=== PATIENT | male | born 1945 | race American Indian/Alaskan Native ===

== ENCOUNTER 2019-04-13 17:00 | Inpatient (IN) | payer MEDICARE ==
[2019-04-13] MEDS ORDERED: ZEMURON IV ONE (17:05)
[2019-04-13] MEDS ORDERED: AMIDATE IV ONE (17:05)
[2019-04-13] MEDS ORDERED: VERSED IV PRN (17:15)
[2019-04-13] MEDS ORDERED: SUBLIMAZE IV PRN (17:15)
[2019-04-13] MEDS ORDERED: ARTIFICIAL TEARS OPHTH OINT OU PRN (17:15)
[2019-04-13] MEDS ORDERED: VASELINE LIP THERAPY TP PRN (17:15)
[2019-04-13 17:16] LABS: Basophils # (Auto) 0.1 K/mm3 (0.0-0.1); Basophils % (Auto) 1.1 % (0.0-1.8); Eosinophils # (Auto) 0.3 K/mm3 (0.0-0.4); Eosinophils % (Auto) 2.8 % (0.0-4.3); Hematocrit 30.8 % (35.5-45.6); Hemoglobin 9.7 gm/dl (11.8-15.2); Lymphocytes # (Auto) 3.6 K/mm3 (1.2-5.4); Mean Corpuscular HGB Conc 31 % (32-34); Mean Corpuscular Volume 94 fl (84-94); Monocytes # (Auto) 0.6 K/mm3 (0.0-0.8); Monocytes % (Auto) 6.4 % (0.0-7.3); Platelet Count 227 K/mm3 (140-440); Red Blood Count 3.27 M/mm3 (3.65-5.03)
[2019-04-13 17:18] LABS: Red Cell Distribution Width 20.9 % (13.2-15.2)
[2019-04-13 17:28] LABS: INR 0.98 (0.87-1.13)
[2019-04-13 17:29] LABS: Partial Thromboplastin Time 27.9 Sec. (24.2-36.6); Thrombin Time 14.7 Sec. (15.1-19.6)
--- NOTE | 2019-04-13 17:34 | Emergency Department Report ---
ED General Adult HPI - General Chief complaint: Cardiac Arrest/CPR Stated complaint: POST ARREST/STEMI Time Seen by Provider: 04/13/19 17:08 Source: EMS (verbal report received from EMS.ems notes not available at time of chart dictation), RN notes reviewed Mode of arrival: Stretcher Limitations: Altered Mental Status, Physical Limitation - History of Present Illness Initial comments: This is an -[place] gentleman, appears to be in his early 60s, unknown past medical history, who was brought to the hospital by emergency medical services as an out of hospital cardiac arrest. As per verbal report from emergency medical services, the patient was reportedly in transport, unknown from where, unknown to what destination, when he reportedly slumped over and became unresponsive. EMS indicates the patient was pulseless upon arrival. The indicated he may have had some right-sided finger twitching. The patient was given epinephrine, calcium, chest compressions, and had a Piyush airway device placed. EMS indicates the patient was reportedly pulseless for 4-5 minutes. The patient arrives to the emergency room, with pulses, and hypertensive, with a blood pressure 200s. He has a fingerstick of 98. He is still in a coma. The patient induced with 20 mg of etomidate, aggressively suctioned, direct laryngoscopy is performed, and a 7.5 endotracheal tube was inserted by myself, with one attempt, with no difficulty. Tube placement is confirmed by auscultating breath sounds, postintubation capnography, and post intubation x- ray of the chest. The patient's prehospital EKG was reviewed, and demonstrated ST elevations V1, V2, V3, with simultaneous depressions V4, V5 and V6. ST elevations also noted in aVR. Patient's post intubation x-ray suggested abnormally widened mediastinum. Given EKG findings, chest x-ray findings, hypertension, we are concerned about the possibility of ascending thoracic aortic dissection. Intracranial hemorrhage is also a possibility. The STEMI team was activated overhead, however, the patient required an emergent CT scan of the brain to exclude hemorrhage, an emergent CT angiogram of the chest to exclude aortic dissection, large pulmonary embolus. The patient is currently in his room, status post CAT scan, intubated, sedated, and we are awaiting CT scan of the brain, and CT scan of the chest interpretation. The patient is not able to describe exacerbating or relieving factors, qualitative nature of his symptoms, or radiation. Given the emergent nature of his presentation and symptoms, I have emergently, and administratively consented this patient for intravenous contrast, to exclude potentially life-threatening in time sensitive diagnosis. If he requires additional inpatient consultation, such as nephrology and/or critical care, we will arrange. -: Sudden Radiation: other Quality: other Consistency: other Improves with: other Worsens with: other Associated Symptoms: other - Related Data Allergies Allergy/AdvReac Type Severity Reaction Status Date / Time No Known Allergies Allergy Unverified 04/13/19 17:02 ED Review of Systems ROS: Stated complaint: POST ARREST/STEMI Other details as noted in HPI Comment: Unobtainable due to pts medical conditions ED Past Medical Hx - Past Medical History Previous Medical History?: No - Surgical History Past Surgical History?: No ED Physical Exam - General Limitations: No Limitations, Altered Mental Status General appearance: obtunded - Head Head exam: Present: atraumatic, normocephalic - Eye Eye exam: Present: other (pupils are 2 mm, do not react to light) - ENT ENT exam: Present: normal external ear exam, other (copious secretions noted in the oropharynx. Patient noted to be moving jaw and tongue prior to intubation, induction) - Neck Neck exam: Present: normal inspection - Respiratory Respiratory exam: Present: rhonchi - Cardiovascular Cardiovascular Exam: Present: normal rhythm, tachycardia, normal heart sounds. Absent: bradycardia, irregular rhythm, systolic murmur, diastolic murmur - GI/Abdominal GI/Abdominal exam: Present: soft, distended. Absent: tenderness, guarding, rebound, rigid, pulsatile mass - exam: Present: normal inspection - Extremities Exam Extremities exam: Present: normal inspection, other (there appears to be a nonfunctioning left upper extremity graft) - Back Exam Back exam: Absent: tenderness, paraspinal tenderness - Neurological Exam Neurological exam: Present: altered, other (presents with an initial Kellen Coma Scale of 3) - Skin Skin exam: Present: dry ED Course Vital Signs 04/13/19 04/13/19 17:00 18:25 Pulse Rate 80 86 Respiratory 16 17 Rate Blood Pressure 186/100 167/91 [Left] O2 Sat by Pulse 100 100 Oximetry - Reevaluation(s) Reevaluation #1: 04/13/19 18:07 As per verbal report from our interpreting radiologist, Dr. Vogt, there is no dissection noted on CT scan. Incidental findings noted. Please note that because of the undifferentiated nature of the patient's initial presentation, a broad differential diagnosis required entertaining, including intracranial hemorrhage, and aortic dissection. Therefore, there may be a delay in the door to balloon time for cardiac catheterization, given the number of emergent diagnoses that required emergent exclusion. Therefore, heparin and aspirin and Plavix were also not administered in the emergency room. The patient is currently in the cardiac sawyer cork slabs, with contact acid plant operator plans to evaluate his coronary anatomy. A page is placed out to nephrology international sourcing manager, and critical care international sourcing manager. Reevaluation #2: 04/13/19 18:26 Discussed with critical care physician, Dr. Michael, who agrees with placement into the intensive care unit. He does not recommend postarrest hypothermia protocol, as this hospital does not have a postarrest hypothermia protocol. The case is presented to the Hospital physician, Dr. Mendez, who has accepted the patient quite graciously to the intensive care unit. We do not know who the patient's primary facilities management executive is, therefore, we have placed a page to the outpatient facilities management executive on-call, and we are waiting for them to call back. Reevaluation #3: 04/13/19 18:32 Discussed with nephrology international sourcing manager, Dr. Yaya Stoddard, who agrees to follow on the inpa tient side of things and arrange for inpatient dialysis. - Consultations Consultation #1: 04/13/19 18:02 \l - EJ/Peripheral Line Neck L Time Out Performed: Yes Indications: nurses unable to establis Skin Cleansed in Sterile Fashion: Yes Size: 18 Dressing Placed: Tegaderm Patient Tolerated Procedure: well - Intubation Time Out Performed: No (emergency procedure) Sedative: Etomidate Mg Given: 20 Paralytic: Rocuronium Mg Given: 100 Laryngoscope: Chen Size: 3 ET Tube Size: 7.5 Tube Secured Depth (cm): 23 Tube Secured Location: teeth Tube Placement Confirmation: visualized tube passing t, equal breath sounds bilat, no breath sounds over epi, confirmation by capnometr Patient Tolerated Procedure: well Additional Comments: Emergency medical services indicated that patient was a difficult intubation, and placed a Piyush airway. The Piyush airway was removed by myself upon the patient's presentation. He is placed on a nasal cannula at 15 L/m. He receives aggressive bag valve mask ventilation. He is aggressively suctioned. He has towel rolls in place underneath his shoulder, ears R lines to the sternal notch, direct laryngoscopy performed, excellent visualization of the cords is noted, and a 7.5 endotracheal tube was inserted by myself with 1 attempt with no obvious difficulty. ED Medical Decision Making - Lab Data Result diagrams: 04/13/19 17:05 04/13/19 17:09 Lab Results 04/13/19 04/13/19 04/13/19 Range/Units 17:05 17:05 17:05 WBC 9.7 (4.5-11.0) K/mm3 RBC 3.27 L (3.65-5.03) M/mm3 Hgb 9.7 L (11.8-15.2) gm/dl Hct 30.8 L (35.5-45.6) % MCV 94 (84-94) fl MCH 30 (28-32) pg MCHC 31 L (32-34) % RDW 20.9 H (13.2-15.2) % Plt Count 227 (140-440) K/mm3 Lymph % (Auto) 37.0 H (13.4-35.0) % [place] % (Auto) 6.4 (0.0-7.3) % Eos % (Auto) 2.8 (0.0-4.3) % Baso % (Auto) 1.1 (0.0-1.8) % Lymph # 3.6 (1.2-5.4) K/mm3 [place] # 0.6 (0.0-0.8) K/mm3 Eos # 0.3 (0.0-0.4) K/mm3 Baso # 0.1 (0.0-0.1) K/mm3 Seg Neutrophils % 52.7 (40.0-70.0) % Seg Neutrophils # 5.1 (1.8-7.7) K/mm3 PT 13.6 (12.2-14.9) Sec. INR 0.98 (0.87-1.13) APTT 27.9 (24.2-36.6) Sec. Thrombin Time 14.7 L (15.1-19.6) Sec. Magnesium (1.7-2.3) mg/dL Salicylates (2.8-20.0) mg/dL Acetaminophen (10.0-30.0) ug/mL Plasma/Serum Alcohol < 0.01 (0-0.07) % 04/13/19 04/13/19 04/13/19 Range/Units 17:05 17:05 17:05 WBC (4.5-11.0) K/mm3 RBC (3.65-5.03) M/mm3 Hgb (11.8-15.2) gm/dl Hct (35.5-45.6) % MCV (84-94) fl MCH (28-32) pg MCHC (32-34) % RDW (13.2-15.2) % Plt Count (140-440) K/mm3 Lymph % (Auto) (13.4-35.0) % [place] % (Auto) (0.0-7.3) % Eos % (Auto) (0.0-4.3) % Baso % (Auto) (0.0-1.8) % Lymph # (1.2-5.4) K/mm3 [place] # (0.0-0.8) K/mm3 Eos # (0.0-0.4) K/mm3 Baso # (0.0-0.1) K/mm3 Seg Neutrophils % (40.0-70.0) % Seg Neutrophils # (1.8-7.7) K/mm3 PT (12.2-14.9) Sec. INR (0.87-1.13) APTT (24.2-36.6) Sec. Thrombin Time (15.1-19.6) Sec. Magnesium 1.90 (1.7-2.3) mg/dL Salicylates < 0.3 L (2.8-20.0) mg/dL Acetaminophen < 5.0 L (10.0-30.0) ug/mL Plasma/Serum Alcohol (0-0.07) % Lab Results 04/13/19 04/13/19 04/13/19 Range/Units 17:05 17:05 17:05 WBC 9.7 (4.5-11.0) K/mm3 RBC 3.27 L (3.65-5.03) M/mm3 Hgb 9.7 L (11.8-15.2) gm/dl Hct 30.8 L (35.5-45.6) % MCV 94 (84-94) fl MCH 30 (28-32) pg MCHC 31 L (32-34) % RDW 20.9 H (13.2-15.2) % Plt Count 227 (140-440) K/mm3 Lymph % (Auto) 37.0 H (13.4-35.0) % [place] % (Auto) 6.4 (0.0-7.3) % Eos % (Auto) 2.8 (0.0-4.3) % Baso % (Auto) 1.1 (0.0-1.8) % Lymph # 3.6 (1.2-5.4) K/mm3 [place] # 0.6 (0.0-0.8) K/mm3 Eos # 0.3 (0.0-0.4) K/mm3 Baso # 0.1 (0.0-0.1) K/mm3 Seg Neutrophils % 52.7 (40.0-70.0) % Seg Neutrophils # 5.1 (1.8-7.7) K/mm3 PT 13.6 (12.2-14.9) Sec. INR 0.98 (0.87-1.13) APTT 27.9 (24.2-36.6) Sec. Thrombin Time 14.7 L (15.1-19.6) Sec. Sodium (137-145) mmol/L Potassium (3.6-5.0) mmol/L Chloride (98-107) mmol/L Carbon Dioxide (22-30) mmol/L Anion Gap mmol/L BUN (9-20) mg/dL Creatinine (0.8-1.5) mg/dL Estimated GFR ml/min BUN/Creatinine Ratio % Glucose (75-100) mg/dL Calcium (8.4-10.2) mg/dL Magnesium (1.7-2.3) mg/dL Total Bilirubin (0.1-1.2) mg/dL AST (5-40) units/L ALT (7-56) units/L Alkaline Phosphatase (35-129) units/L Total Creatine Kinase (55-170) units/L CK-MB (CK-2) (0.0-4.0) ng/mL CK-MB (CK-2) Rel Index (0-4) Troponin T (0.00-0.029) ng/mL Total Protein (6.3-8.2) g/dL Albumin (3.9-5) g/dL Albumin/Globulin Ratio % Salicylates (2.8-20.0) mg/dL Acetaminophen (10.0-30.0) ug/mL Plasma/Serum Alcohol < 0.01 (0-0.07) % 04/13/19 04/13/19 04/13/19 Range/Units 17:05 17:05 17:05 WBC (4.5-11.0) K/mm3 RBC (3.65-5.03) M/mm3 Hgb (11.8-15.2) gm/dl Hct (35.5-45.6) % MCV (84-94) fl MCH (28-32) pg MCHC (32-34) % RDW (13.2-15.2) % Plt Count (140-440) K/mm3 Lymph % (Auto) (13.4-35.0) % [place] % (Auto) (0.0-7.3) % Eos % (Auto) (0.0-4.3) % Baso % (Auto) (0.0-1.8) % Lymph # (1.2-5.4) K/mm3 [place] # (0.0-0.8) K/mm3 Eos # (0.0-0.4) K/mm3 Baso # (0.0-0.1) K/mm3 Seg Neutrophils % (40.0-70.0) % Seg Neutrophils # (1.8-7.7) K/mm3 PT (12.2-14.9) Sec. INR (0.87-1.13) APTT (24.2-36.6) Sec. Thrombin Time (15.1-19.6) Sec. Sodium (137-145) mmol/L Potassium (3.6-5.0) mmol/L Chloride (98-107) mmol/L Carbon Dioxide (22-30) mmol/L Anion Gap mmol/L BUN (9-20) mg/dL Creatinine (0.8-1.5) mg/dL Estimated GFR ml/min BUN/Creatinine Ratio % Glucose (75-100) mg/dL Calcium (8.4-10.2) mg/dL Magnesium 1.90 (1.7-2.3) mg/dL Total Bilirubin (0.1-1.2) mg/dL AST (5-40) units/L ALT (7-56) units/L Alkaline Phosphatase (35-129) units/L Total Creatine Kinase (55-170) units/L CK-MB (CK-2) (0.0-4.0) ng/mL CK-MB (CK-2) Rel Index (0-4) Troponin T (0.00-0.029) ng/mL Total Protein (6.3-8.2) g/dL Albumin (3.9-5) g/dL Albumin/Globulin Ratio % Salicylates < 0.3 L (2.8-20.0) mg/dL Acetaminophen < 5.0 L (10.0-30.0) ug/mL Plasma/Serum Alcohol (0-0.07) % 04/13/19 Range/Units 17:09 WBC (4.5-11.0) K/mm3 RBC (3.65-5.03) M/mm3 Hgb (11.8-15.2) gm/dl Hct (35.5-45.6) % MCV (84-94) fl MCH (28-32) pg MCHC (32-34) % RDW (13.2-15.2) % Plt Count (140-440) K/mm3 Lymph % (Auto) (13.4-35.0) % [place] % (Auto) (0.0-7.3) % Eos % (Auto) (0.0-4.3) % Baso % (Auto) (0.0-1.8) % Lymph # (1.2-5.4) K/mm3 [place] # (0.0-0.8) K/mm3 Eos # (0.0-0.4) K/mm3 Baso # (0.0-0.1) K/mm3 Seg Neutrophils % (40.0-70.0) % Seg Neutrophils # (1.8-7.7) K/mm3 PT (12.2-14.9) Sec. INR (0.87-1.13) APTT (24.2-36.6) Sec. Thrombin Time (15.1-19.6) Sec. Sodium 141 (137-145) mmol/L Potassium 3.1 L (3.6-5.0) mmol/L Chloride 95.5 L (98-107) mmol/L Carbon Dioxide 21 L (22-30) mmol/L Anion Gap 28 mmol/L BUN 18 (9-20) mg/dL Creatinine 4.6 H (0.8-1.5) mg/dL Estimated GFR 11 ml/min BUN/Creatinine Ratio 4 % Glucose 176 H (75-100) mg/dL Calcium 9.9 (8.4-10.2) mg/dL Magnesium (1.7-2.3) mg/dL Total Bilirubin < 0.30 (0.1-1.2) mg/dL AST 125 H (5-40) units/L ALT 106 H (7-56) units/L Alkaline Phosphatase 75 (35-129) units/L Total Creatine Kinase 233 H (55-170) units/L CK-MB (CK-2) 5.0 H (0.0-4.0) ng/mL CK-MB (CK-2) Rel Index 2.1 (0-4) Troponin T 0.157 H* (0.00-0.029) ng/mL Total Protein 7.9 (6.3-8.2) g/dL Albumin 3.8 L (3.9-5) g/dL Albumin/Globulin Ratio 0.9 % Salicylates (2.8-20.0) mg/dL Acetaminophen (10.0-30.0) ug/mL Plasma/Serum Alcohol (0-0.07) % - EKG Data 04/13/19 17:49 Prehospital EKG demonstrates a tachycardic rhythm, right axis deviation, borderline left posterior fascicular block, ST elevation in aVR, V1, V2, V3, with ST depression V4, V5 and V6. This is an abnormal EKG. This EKG appears to be consistent with ST elevation myocardial infarction. There is no previous EKG available for comparison. Repeat emergency room EKG shows a sinus tachycardia, 120 bpm, ST elevation in V1, nonspecific abnormality V2, question to Winter T waves in V3, V4, V5, this is an abnormal EKG. This appears to be somewhat changed compared to the prior prehospital EKG. - Radiology Data Radiology results: pending, report reviewed, image reviewed interpreted by me: X-ray of the chest shows wide mediastinum, question upper lobe infiltrates, appropriate placement of endotracheal tube. As per verbal report from [facility] radiology, there is no head bleed Print Report Referring Physician: QUINCY SEQUEIRA Patient Name: WILL LEE Date of : Sex: Male Report Date: 2019-04-13 Report Status: Finalized Findings [facility] [address] [place] [address] Cat Scan Report Signed Patient: WILL LEE MR#: [id number] 1 : A cct:[id number] Age/Sex: 89 / M ADM Date: 04/13/19 Loc: ED Attending Dr: Ordering Physician: QUINCY SEQUEIRA MD Date of Service: 04/13/19 Procedure(s): CT head/brain wo con Accession Number(s): [id number] cc: QUINCY SEQUEIRA MD PROCEDURE: CT HEAD/BRAIN WO CON TECHNIQUE: Computerized tomography of the head was performed without contrast material. CT DOSE LENGTH PRODUCT: 1035.5 mGycm HISTORY: Stroke symptoms COMPARISONS: None . FINDINGS: Brain: There is no evidence of intracranial hemorrhage. No parenchymal hemorrhage is seen. No mass lesions or mass effect is identified. No abnormal extra-axial fluid collections or masses are seen. Small well-defined area of decreased density seen posterior medial aspect left thalamus consistent with an old lacunar infarct. There is some decreased density seen in the periventricular white matter without mass effect. This is fairly symmetric and does not exhibit any mass effect consistent with gliosis probably on the basis of microvascular disease or white matter changes of aging. Ventricles: The ventricles, sulcal pattern and fissures are prominent consistent with atrophy. Bone Windows: No evidence of fracture. Paranasal sinuses: Clear. Mastoid air cells: Clear. IMPRESSION: No acute abnormalities are identified. There does appear to be atrophy and gliosis and a small old lacunar infarct in the posterior medial aspect left thalamus. If symptoms persist or worsen consider follow-up CT scan or MRI for further evaluation. This document is electronically signed by Quique Vogt MD., Apr 13 2019 05:48:28 PM ET Transcribed By: DFN Dictated By: QUIQUE VOGT MD Electronically Authenticated By: QUIQUE VOGT MD Signed Date/Time: 03/17 1750 rint Report Referring Physician: QUINCY SEQUEIRA Patient Name: WILL LEE Date of : 1945 Sex: Male Report Date: 2019-04-13 Report Status: Finalized Findings [facility] [address] [place] [address] Cat Scan Report Signed Patient: WILL LEE MR#: [id number] 1 : 1945 Acct:[id number] Age/Sex: 73 / M ADM Date: 04/13/19 Loc: ED Attending Dr: Ordering Physician: QUINCY SEQUEIRA MD Date of Service: 04/13/19 Procedure(s): CT angio chest Accession Number(s): [id number] cc: QUINCY SEQUEIRA MD PROCEDURE: CT ANGIO CHEST TECHNIQUE: Computerized tomographic angiography of the chest was performed after the IV injection of iodinated nonionic contrast including image processing. The image data was postprocessed using 2-dimensional multiplanar reformatted (MPR) and 3-dimensional (MIP and/or volume rendered) techniques. Automated exposure control, adjustment of mA and/or kV according to patient size, or iterative reconstruction dose optimization techniques were utilized. CT DOSE LENGTH PRODUCT: 722.5 mGycm HISTORY: ARREST HTN ? DISSECTION COMPARISONS: None . FINDINGS: Pulmonary out flow tract, right and left main pulmonary arteries and the approximal branches: Clear, no filling defects seen to suggest pulmonary embolus. Pericardium: No evidence of pericardial effusion. Thoracic aorta: No evidence of aneurysmal dilatation or dissection. Coronary ar teries: Minimal calcification visualized coronary arteries indicating atherosclerotic disease. Mediastinum and hilar regions: Non specific subcentimeter lymph nodes are visualized. No pathologically enlarged lymph nodes or masses are identified. Lung [place]: There is mild increased density right perihilar region extending into the right upper lobe and right lower lobe. This may represent atelectasis or developing infiltrate. I cannot exclude mild asymmetric pulmonary edema or even mild aspiration.. No effusions are identified. There is some dependent atelectasis also present. Upper abdomen: 3.6 cm cyst appears to be partially visualized in the lateral aspect of the left kidney. No acute abnormalities are seen in the upper abdomen. Other: Endotracheal tube in place. The tip is 2.9 cm above the katia and is in good position. NG tube is coiled within the stomach. The distal end projects into the antrum of the stomach and is in good position. A metallic stent appears to be partially visualized in the left upper extremity medially superiorly.. On the sagittal reconstructions there is mild contour irregularity in the mid sternum. This is visualized on images 86-93 series 601. This could be an artifact secondary to motion. I cannot exclude a subtle nondisplaced fracture. This could also be related to old trauma. Correlation with physical exam recommended. There is a minimally displaced acute right fifth rib fracture anteriorly. There is mild deformity of the posterior aspect of the left 10th rib which could be related to old trauma or represent acute nondisplaced fracture. IMPRESSION: No evidence of aortic dissection. No evidence of pulmonary embolus. Minimal calcification seen in the coronary arteries indicating atherosclerotic disease. Mild increased density right perihilar region as described. This may represent atelectasis, asymmetric pulmonary edema or even mild aspiration. No dense consolidation effusions or pneumothorax visualized. A portion of a vascular graft appears to be partially visualized in the left upper extremity. Correlation with prior interventional history recommended. Endotracheal tube and NG tube in good position. Slight contour irregularity mid sternum. Please see above comments. Correlation with physical exam is recommended to exclude an acute fracture.. Acute minimally displaced right fifth rib fracture anteriorly. Mild deformity left 10th rib posteriorly which could be related to old trauma or represent acute nondisplaced fracture. Correlation with physical exam is recommended. This document is electronically signed by Quique Vogt MD., Apr 13 2019 06:14:03 PM ET Transcribed By: DFN Dictated By: QUIQUE VOGT MD Electronically Authenticated By: QUIQUE VOGT MD Signed Date/Time: 04/13/19 7794 Critical Care Time: Yes Critical care time in (mins) excluding proc time.: 140 Critical care attestation.: If time is entered above; I have spent that time in minutes in the direct care of this critically ill patient, excluding procedure time. ED Disposition Clinical Impression: Cardiac arrest, Renal insufficiency Disposition: 09 OP ADMIT IP TO THIS HOSP Is pt being admited?: Yes Condition: Critical Referrals: ANNA LIU MD [Primary Care Provider] - 3-5 Days
[2019-04-13] MEDS ORDERED: ZOSYN/NS 4.5GM/100ML 4.5 GM/100 ML VIAL IV ONE (17:36)
[2019-04-13] MEDS ORDERED: CALAN ONE (17:38)
[2019-04-13] MEDS ORDERED: HEPARIN/NS 5000 UNIT/500ML(CATH LAB) 1,000 ML IR ONE (17:38)
[2019-04-13] MEDS ORDERED: XYLOCAINE 2% INFILTRATI ONE (17:39)
[2019-04-13] MEDS ORDERED: NITROGLYCERIN SYRINGE 3 ML ONE (17:39)
[2019-04-13] MEDS: MIDAZOLAM 100 MG in NACL 0.9% 80 ML IV SCH (17:45)
--- NOTE | 2019-04-13 17:50 | Cat Scan Report ---
PROCEDURE: CT HEAD/BRAIN WO CON TECHNIQUE: Computerized tomography of the head was performed without contrast material. CT DOSE LENGTH PRODUCT: 1035.5 mGycm HISTORY: Stroke symptoms COMPARISONS: None . FINDINGS: Brain: There is no evidence of intracranial hemorrhage. No parenchymal hemorrhage is seen. No mass lesions or mass effect is identified. No abnormal extra-axial fluid collections or masses are seen. Small well-defined area of decreased density seen posterior medial aspect left thalamus consistent wi th an old lacunar infarct. There is some decreased density seen in the periventricular white matter without mass effect. This i s fairly symmetric and does not exhibit any mass effect consistent with gliosis probably on the basis of microvascular disease or white matter changes of aging. Ventricles: The ventricles, sulcal pattern and fissures are prominent consistent with atrophy. Bone Windows: No evidence of fracture. Paranasal sinuses: Clear. Mastoid air cells: Clear. IMPRESSION: No acute abnormalities are identified. There does appear to be atrophy and gliosis and a small old lacunar infarct in the posterior medial a spect left thalamus. If symptoms persist or worsen consider follow-up CT scan or MRI for further evaluation. This document is electronically signed by Quique Marcelo MD., Apr 13 2019 05:48:28 PM ET
[2019-04-13 17:52] LABS: BUN/Creatinine Ratio 4; Blood Urea Nitrogen 18 mg/dL (9-20)
[2019-04-13 17:53] LABS: Alanine Aminotransferase 106 units/L (7-56); Calcium 9.9 mg/dL (8.4-10.2)
[2019-04-13 17:55] LABS: Albumin 3.8 g/dL (3.9-5); Hemolysis Index 24
[2019-04-13] MEDS ORDERED: VERSED ONE (17:55)
[2019-04-13] MEDS ORDERED: NACL 0.9% 500 ML 500 ML ONE (17:55)
[2019-04-13] MEDS ORDERED: SUBLIMAZE ONE (17:56)
[2019-04-13] MEDS ORDERED: fentaNYL DRIP Premix 2,000 MCG/100 ML BAG IV SCH (18:00)
[2019-04-13] MEDS ORDERED: CARDENE 50 MG in NACL 0.9% 250ML 230 ML IV SCH (18:00)
[2019-04-13] MEDS: HEPARIN 10,000 UNITS/10 ML ONE ×2 (18:08→18:23)
[2019-04-13 18:09] LABS: Chol/HDL Ratio 2.04 %; HDL Cholesterol 69 mg/dL (40-59); LDL Cholesterol,Direct 68 mg/dL (50-130)
[2019-04-13] MEDS ORDERED: HEPARIN/NS 5000 UNIT/500ML(CATH LAB) 500 ML IR ONE (18:15)
--- NOTE | 2019-04-13 18:16 | Cat Scan Report ---
PROCEDURE: CT ANGIO CHEST TECHNIQUE: Computerized tomographic angiography of the chest was performed after the IV injection of iodinated nonionic contrast including image processing. The image data was postprocessed using 2-di mensional multiplanar reformatted (MPR) and 3-dimensional (MIP and/or volume rendered) techniques. Au tomated exposure control, adjustment of mA and/or kV according to patient size, or iterative reconstr uction dose optimization techniques were utilized. CT DOSE LENGTH PRODUCT: 722.5 mGycm HISTORY: ARREST HTN ? DISSECTION COMPARISONS: None . FINDINGS: Pulmonary out flow tract, right and left main pulmonary arteries and the approximal branches: Clear, no filling defects seen to suggest pulmonary embolus. Pericardium: No evidence of pericardial effusion. Thoracic aorta: No evidence of aneurysmal dilatation or dissection. Coronary arteries: Minimal calcification visualized coronary arteries indicating atherosclerotic dise ase. Mediastinum and hilar regions: Non specific subcentimeter lymph nodes are visualized. No pathologica lly enlarged lymph nodes or masses are identified. Lung [place]: There is mild increased density right perihilar region extending into the right upper lo be and right lower lobe. This may represent atelectasis or developing infiltrate. I cannot exclude mi ld asymmetric pulmonary edema or even mild aspiration.. No effusions are identified. There is some de pendent atelectasis also present. Upper abdomen: 3.6 cm cyst appears to be partially visualized in the lateral aspect of the left kidn ey. No acute abnormalities are seen in the upper abdomen. Other: Endotracheal tube in place. The tip is 2.9 cm above the katia and is in good position. NG tub e is coiled within the stomach. The distal end projects into the antrum of the stomach and is in good position. A metallic stent appears to be partially visualized in the left upper extremity medially superiorly.. On the sagittal reconstructions there is mild contour irregularity in the mid sternum. This is visual ized on images 86-93 series 601. This could be an artifact secondary to motion. I cannot exclude a herr btle nondisplaced fracture. This could also be related to old trauma. Correlation with physical exam recommended. There is a minimally displaced acute right fifth rib fracture anteriorly. There is mild deformity of the posterior aspect of the left 10th rib which could be related to old trauma or represent acute non displaced fracture. IMPRESSION: No evidence of aortic dissection. No evidence of pulmonary embolus. Minimal calcification seen in the coronary arteries indicating atherosclerotic disease. Mild increased density right perihilar region as described. This may represent atelectasis, asymmetri c pulmonary edema or even mild aspiration. No dense consolidation effusions or pneumothorax visualize d. A portion of a vascular graft appears to be partially visualized in the left upper extremity. Correla tion with prior interventional history recommended. Endotracheal tube and NG tube in good position. Slight contour irregularity mid sternum. Please see above comments. Correlation with physical exam is recommended to exclude an acute fracture.. Acute minimally displaced right fifth rib fracture anteriorly. Mild deformity left 10th rib posteriorly which could be related to old trauma or represent acute nond isplaced fracture. Correlation with physical exam is recommended. This document is electronically signed by Quique Marcelo MD., Apr 13 2019 06:14:03 PM ET
[2019-04-13] MEDS ORDERED: ASPIRIN ONE (18:17)
[2019-04-13] MEDS ORDERED: ZOFRAN IV PRN (18:26)
[2019-04-13] MEDS ORDERED: PROVENTIL IH PRN (18:26)
[2019-04-13] MEDS ORDERED: SODIUM CHLORIDE FLUSH SYRINGE 10 ML IV PRN (18:26)
--- NOTE | 2019-04-13 18:26 | History and Physical Report ---
History of Present Illness Chief complaint: Unresponsive History of present illness: 73 YO Male with Obesity presents to ED for evaluation. Pt is unresponsive and unable to provide history. Pt history taken from EMS, and ED staff. As per staff, the patient was found down and unresponsive in his van. EMS was notified and upon arrival the patient was found to be in cardiac arrest. Pt initiated on ACLS protocol and transported to [facility]. Pt intubated and a Piyush airway placed. Pt was in PEA for 4-5 minutes as per EMS with return of perfusing rhythm. Pt seen and evaluated in ED and found to be hypertensive with clinical findings consistent with Anoxic Brain Injury as well as Acute Respiratory Failure and EKG changes consistent with STEMI. PT intubated with a definitive airway in ED and placed on vent support. Cardiology consulted in ED and patient taken urgently to the computer laboratory technician. Pt admitted to ICU. Pulmonary team consulted in ED. No further history obtainable. No prior admission for review. No medication listed at time of admission for reconciliation. Past History Past Medical History: No medical history, other (UTO) Past Surgical History: No surgical history, Other (UTO) Social history: . denies: smoking, alcohol abuse, prescription drug abuse Family history: no significant family history, other (UTO) Medications and Allergies Allergies Allergy/AdvReac Type Severity Reaction Status Date / Time No Known Allergies Allergy Unverified 04/13/19 17:02 Active Meds: Active Medications Fentanyl (Sublimaze) 50 mcg IV Q10MIN PRN PRN Reason: ANALGESIA Last Admin: 04/13/19 17:20 Dose: 50 mcg Documented by: Hydrophilic Ointment (Vaseline Lip Therapy) 1 applic TP Q2HR PRN PRN Reason: Dry Lips Nicardipine HCl 50 mg/ Sodium (Chloride) 250 mls @ 25 mls/hr IV TITR RAKESH; Protocol Fentanyl Citrate (Fentanyl Drip Premix) 2,000 mcg in 100 mls @ 4.25 mls/hr IV TITR RAKESH; Protocol Midazolam HCl 100 mg/ Sodium (Chloride) 100 mls @ 2 mls/hr IV TITR RAKESH; Protocol Last Admin: 04/13/19 17:45 Dose: 2 mg/hr, 2 mls/hr Documented by: Midazolam HCl (Versed) 2 mg IV Q10MIN PRN PRN Reason: Sedation Multi-Ingred Cream/Lotion/Oil/Oint (Artificial Tears Ophth Oint) 1 applic OU Q4HR PRN PRN Reason: Dry Eye(s) Review of Systems ROS unobtainable: due to endotracheal tube, due to mental status Exam - Constitutional Vitals: Temp Pulse Resp BP Pulse Ox 86 17 167/91 100 04/13/19 18:25 04/13/19 18:25 04/13/19 18:25 04/13/19 18:25 General appearance: Present: severe distress, obese - EENT Eyes: Present: miosis - Neck Neck: Present: supple, normal ROM - Respiratory Respiratory effort: labored Respiratory: bilateral: diminished - Cardiovascular Heart Sounds: Present: S1 & S2. Absent: rub, click - Extremities Extremities: pulses symmetrical, No edema Extremity abnormal: edema Peripheral Pulses: abnormal - Abdominal General gastrointestinal: Present: soft, non-tender, non-distended, normal bowel sounds Male genitourinary: Present: normal - Integumentary Integumentary: Present: clear, erythema, clammy - Musculoskeletal Musculoskeletal: generalized weakness - Psychiatric Psychiatric: no appropriate mood/affect, no intact judgment & insight, no memory intact - Neurologic Neurologic: no moves all extremities, no gait normal Results - Labs CBC & Chem 7: 04/13/19 17:05 04/13/19 17:09 Labs: Abnormal lab results 04/13/19 04/13/19 04/13/19 Range/Units 17:05 17:05 17:05 RBC 3.27 L (3.65-5.03) M/mm3 Hgb 9.7 L (11.8-15.2) gm/dl Hct 30.8 L (35.5-45.6) % MCHC 31 L (32-34) % RDW 20.9 H (13.2-15.2) % Lymph % (Auto) 37.0 H (13.4-35.0) % Thrombin Time 14.7 L (15.1-19.6) Sec. Potassium (3.6-5.0) mmol/L Chloride (98-107) mmol/L Carbon Dioxide (22-30) mmol/L Creatinine (0.8-1.5) mg/dL Glucose (75-100) mg/dL Lactic Acid (0.7-2.0) mmol/L AST (5-40) units/L ALT (7-56) units/L Total Creatine Kinase (55-170) units/L CK-MB (CK-2) (0.0-4.0) ng/mL Troponin T (0.00-0.029) ng/mL Albumin (3.9-5) g/dL HDL Cholesterol (40-59) mg/dL Salicylates < 0.3 L (2.8-20.0) mg/dL Acetaminophen (10.0-30.0) ug/mL 04/13/19 04/13/19 04/13/19 Range/Units 17:05 17:09 17:47 RBC (3.65-5.03) M/mm3 Hgb (11.8-15.2) gm/dl Hct (35.5-45.6) % MCHC (32-34) % RDW (13.2-15.2) % Lymph % (Auto) (13.4-35.0) % Thrombin Time (15.1-19.6) Sec. Potassium 3.1 L (3.6-5.0) mmol/L Chloride 95.5 L (98-107) mmol/L Carbon Dioxide 21 L (22-30) mmol/L Creatinine 4.6 H (0.8-1.5) mg/dL Glucose 176 H (75-100) mg/dL Lactic Acid 10.60 H* (0.7-2.0) mmol/L AST 125 H (5-40) units/L ALT 106 H (7-56) units/L Total Creatine Kinase 233 H (55-170) units/L CK-MB (CK-2) 5.0 H (0.0-4.0) ng/mL Troponin T 0.157 H* (0.00-0.029) ng/mL Albumin 3.8 L (3.9-5) g/dL HDL Cholesterol 69 H (40-59) mg/dL Salicylates (2.8-20.0) mg/dL Acetaminophen < 5.0 L (10.0-30.0) ug/mL Assessment and Plan - Patient Problems (1) Respiratory failure Current Visit: Yes Status: Acute Qualifiers: Chronicity: acute Respiratory failure complication: hypoxia Qualified Code(s): J96.01 - Acute respiratory failure with hypoxia Plan to address problem: Admit to ICU, Pulmonary team consulted in ED, Pt intubated on vent support, wean vent as tolerated, ABG, The high probability of a clinically significant, sudden or life threatening deterioration of the [cardiac, pulmonary, renal, neuro] system(s) required my full and direct attention, intervention and personal management. The aggregate critical care time was [65] minutes. This time is in addition to time spent performing reported procedures but includes the following: [x] Data Review and interpretation [x] Patient assessment and monitoring of vital signs [x] Documentation [x] Medication orders and management (2) STEMI (ST elevation myocardial infarction) Current Visit: Yes Status: Acute Qualifiers: Involved coronary artery: unspecified coronary artery Qualified Code(s): I21.3 - ST elevation (STEMI) myocardial infarction of unspecified site Plan to address problem: Cardiology consulted in ED, Pt taken urgently to laboratory technician, Echo, supportive care. (3) Acidosis Current Visit: Yes Status: Acute Plan to address problem: IVF resuscitation therapy, IV bicarbonate therapy, repeat bmp in AM. (4) Cardiac arrest Current Visit: Yes Status: Acute Plan to address problem: ACLS protocol, Pt taken urgently to laboratory technician. Pt admitted to ICU, Cardiology consulted in ED. (5) DVT prophylaxis Current Visit: Yes Status: Acute Plan to address problem: SCD to BLE while in bed
[2019-04-13] MEDS ORDERED: TRIDIL DRIP 50MG/250ML 50 MG/250 ML BOTTLE ONE (18:33)
[2019-04-13] MEDS ORDERED: PLAVIX ONE (18:44)
[2019-04-13] MEDS ORDERED: ALUM-MAG HYDROX-SIMETH 200-200-20MG/5ML ONE (18:44)
[2019-04-13] MEDS ORDERED: HEPARIN 10,000 UNITS/10 ML ONE (18:54)
--- NOTE | 2019-04-13 19:03 | Event Note ---
Date: 04/13/19 Called his [id number]-mln, Maria Guadalupe Hernandez ([phone]) and gave her a full update.
--- NOTE | 2019-04-13 20:30 | Consultation ---
History of Present Illness - Reason for Consult Consult date: 04/13/19 end stage renal disease Past History Past Medical History: No medical history, other (UTO) Past Surgical History: No surgical history, Other (UTO) Social history: . denies: smoking, alcohol abuse, prescription drug abuse Family history: no significant family history, other (UTO) Medications and Allergies Allergies Allergy/AdvReac Type Severity Reaction Status Date / Time No Known Allergies Allergy Unverified 04/13/19 17:02 Active Meds: Active Medications Albuterol (Proventil) 2.5 mg IH Q3HRT PRN PRN Reason: Shortness Of Breath Aspirin (Ecotrin) 325 mg PO QDAY RAKESH Clopidogrel Bisulfate (Plavix) 75 mg PO QDAY RAKESH Fentanyl (Sublimaze) 50 mcg IV Q10MIN PRN PRN Reason: ANALGESIA Last Admin: 04/13/19 17:20 Dose: 50 mcg Documented by: Hydrophilic Ointment (Vaseline Lip Therapy) 1 applic TP Q2HR PRN PRN Reason: Dry Lips Nicardipine HCl 50 mg/ Sodium (Chloride) 250 mls @ 25 mls/hr IV TITR RAKESH; Protocol Fentanyl Citrate (Fentanyl Drip Premix) 2,000 mcg in 100 mls @ 5.9 mls/hr IV TITR RAKESH; Protocol Midazolam HCl 100 mg/ Sodium (Chloride) 100 mls @ 2 mls/hr IV TITR RAKESH; Protocol Last Admin: 04/13/19 17:45 Dose: 2 mg/hr, 2 mls/hr Documented by: Midazolam HCl (Versed) 2 mg IV Q10MIN PRN PRN Reason: Sedation Multi-Ingred Cream/Lotion/Oil/Oint (Artificial Tears Ophth Oint) 1 applic OU Q4HR PRN PRN Reason: Dry Eye(s) Ondansetron HCl (Zofran) 4 mg IV Q8H PRN PRN Reason: Nausea And Vomiting Sodium Chloride (Sodium Chloride Flush Syringe 10 Ml) 10 ml IV BID RAKESH Sodium Chloride (Sodium Chloride Flush Syringe 10 Ml) 10 ml IV PRN PRN PRN Reason: LINE FLUSH Exam - Vital Signs Vital signs: Vital Signs Pulse Resp BP Pulse Ox 80 16 186/100 100 04/13/19 17:00 04/13/19 17:00 04/13/19 17:00 04/13/19 17:00 Results - Lab Results 04/13/19 17:05 04/13/19 17:09 Most recent lab results Calcium 9.9 mg/dL (8.4-10.2) 04/13/19 17:09 Magnesium 1.90 mg/dL (1.7-2.3) 04/13/19 17:05
[2019-04-13] MEDS ORDERED: D50W (25GM) Syringe IV PRN (20:32)
[2019-04-13] MEDS ORDERED: ATROPINE 0.1% (CARDIAC) ONE (22:28)
[2019-04-13 22:31] LABS: Albumin 3.3 g/dL (3.9-5)
--- NOTE | 2019-04-13 23:26 | Cardiac Catherization Report ---
INDICATION FOR PROCEDURE: The patient is a 73-year-old -Irish gentleman with a history of hypertension, dementia, end-stage renal disease, who presents with found down cardiac arrest, unclear rhythm. He was resuscitated, brought to the Emergency Room with a remarkably high blood pressure. He underwent a brain head CT and chest CT excluded pulmonary embolus, aortic dissection or brain bleed. He is cleared for catheterization lab. He is currently in sinus rhythm. His initial EKG shows marked ST elevation anteriorly with reciprocal ST depression inferiorly. He is brought to the research laboratory technician in urgent fashion. There is some delay to treatment due to need for head and chest CT as aforementioned. The patient was brought to the research laboratory technician in urgent fashion, prepped and draped in sterile fashion, 8 mL of 2% lidocaine used to anesthetize the right groin. A standard 6-German sheath used to cannulate the right common femoral artery via modified Seldinger technique. All exchanges performed to exchange a J-tip guidewire. JL3.5 catheter used to engage the left main. No dampening or ventricularization. Cineangiography performed in all projections. JR4 catheter was used to cross the aortic valve under fluoroscopic guidance. Left ventriculography performed in 30 COREA and 30 JIMI projections via hand injections, catheter flushed. Manual pullback performed with continuous pressure monitoring. Catheter used to engage the right coronary. No dampening or ventricularization. Cineangiography performed in all projections. DATA: The patient remained in normal sinus rhythm throughout the procedure. Left ventriculography reveals normal systolic performance with estimated ejection fraction of 55-60%. No evidence of aortic stenosis. CORONARY ANATOMY: This is a right dominant system. Right coronary is a moderate sized vessel, courses AV groove, distally bifurcates in the posterior and posterolateral branches. No discrete stenosis noted. Left main is a moderate sized vessel, no significant disease, bifurcates the left anterior descending and left circumflex. Left circumflex moderate sized vessel courses AV groove. No significant disease. LAD is a large vessel, courses anterior intergroove, wraps around the apex. There is a 70-80% stenosis in the mid LAD, which is hazy with dye hangup. This is the culprit vessel with angiographic characteristics of atherothrombosis. At this point, we turned our attention to PCI given cardiac arrest, angiographic findings and so forth. Heparin was given. Abnormal ACT is confirmed. Aspirin and Plavix are loaded via NG tube. We used an EBU 3.75 guide to engage left main without difficulty. We used a [employer] wire to cross the lesion without difficulty. We first used IVUS to interrogate the vessel throughout. The culprit vessel has a mean luminal area of less than 3. No spontaneous dissection anatomically significant with significant plaque burden. I decided to proceed with PCI. We used a Xience 3.5 x 22 Resolute Hal, direct stented at 13 DONALDO for 26 seconds. Excellent angiographic result. We repeated angiographic ultrasound, which revealed a well apposed and well expanded stent. Next, wire and a stent balloon were removed. Final angiogram reveals excellent result. No complications. The patient is clinically stable. CONCLUSIONS: The patient is currently intubated, sedated, received dual antiplatelet therapy successfully through the NG tube. BARBARA 3 flow in his right coronary, successful PCI of culprit, mid LAD stenosis. He will be admitted to the hospitalist service to the ICU. Spindle Setter has already been consulted for vent management and Critical Care. I directly supervised the administration of moderate sedation with versed 06:11 to 06:45 p.m. CONCLUSIONS: 1. Acute atherothrombotic subtotal occlusion of mid LAD 80-90% with angiographic characteristics of atherothrombosis in the milieu of anterior STEMI complicated by cardiac arrest. * Successful IVUS-guided PCI placement of drug-eluting stent ([place] 3.5 x 22mm) with excellent final angiographic and ultrasonographic results). 2. No other significant coronary artery disease noted. 3. Preserved left ventricular systolic performance, estimated ejection fraction of 55-60%. 4. No evidence of aortic stenosis. The patient is now clinically stable, hypertensive, started on nitroglycerin drip. Pull sheath once ACT less than 170. Hospitalist to admit the patient. Nephrology intensive care to be consulted. Neurology will eventually likely need to be consulted as well. Unclear of his down time. We will check an echocardiogram. We will follow along closely. JOB# [id number] NANCY/OBED BASILIO
--- NOTE | 2019-04-14 04:02 | XRay Report ---
PROCEDURE: XR CHEST 1V AP TECHNIQUE: Chest radiograph single view. HISTORY: follow up respiratory failure post pci COMPARISONS: None . FINDINGS: Heart: Normal. Mediastinum/Vessels: Normal. Lungs/Pleural space: Lungs are expanded. There are right perihilar infiltrates. There is no pleural effusion or pneumothorax.. Bony thorax: No acute osseous abnormality. Life support devices: The endotracheal tube is in the mid trachea. NG tube is in stomach.. IMPRESSION: Heart size is normal. Lungs are expanded. There are right perihilar infiltrates. There is no pleural effusion or pneumothor ax.. The endotracheal tube is in the mid trachea. NG tube is in stomach.. This document is electronically signed by José Henderson MD., Apr 14 2019 04:00:27 AM ET
[2019-04-14 05:30] LABS: Basophils % (Auto) 0.6 % (0.0-1.8); Eosinophils # (Auto) 0.1 K/mm3 (0.0-0.4); Eosinophils % (Auto) 1.5 % (0.0-4.3); Hematocrit 24.6 % (35.5-45.6); Hemoglobin 7.9 gm/dl (11.8-15.2); Lymphocytes # (Auto) 1.1 K/mm3 (1.2-5.4); Lymphocytes % (Auto) 15.8 % (13.4-35.0); Mean Corpuscular HGB Conc 32 % (32-34); Mean Corpuscular Volume 92 fl (84-94); Monocytes # (Auto) 0.6 K/mm3 (0.0-0.8); Monocytes % (Auto) 7.8 % (0.0-7.3); Platelet Count 181 K/mm3 (140-440); Red Blood Count 2.68 M/mm3 (3.65-5.03)
[2019-04-14] MEDS: HumaLOG SUB-Q SCH ×7 (05:44→22:55)
[2019-04-14 05:48] LABS: Red Cell Distribution Width 20.4 % (13.2-15.2)
[2019-04-14 05:49] LABS: Creatine Kinase MB 4.9 ng/mL (0.0-4.0)
[2019-04-14] MEDS: SODIUM CHLORIDE FLUSH SYRINGE 10 ML IV SCH ×3 (05:51→22:58)
[2019-04-14 05:55] LABS: Calcium 8.8 mg/dL (8.4-10.2)
[2019-04-14] MEDS ORDERED: ECOTRIN PO SCH (10:00)
[2019-04-14] MEDS ORDERED: PLAVIX PO SCH (10:00)
--- NOTE | 2019-04-14 10:03 | Progress Note ---
Assessment and Plan 73 aam: 1. Cardiac arrest (outside of facility) for unknown duration with ROSC (unknown/undocumented primary arrhythmia) 2. Anterior STEMI * s/p primary PCI of culprit mid-lad with YAKOV with excellent result * preserved LV function * await TTE 3. Anoxic encephalopthy (? downtime) * recommend neuro eval * no purposeful movement thus far * head ct unremarkable 4. CKD on HD * per nephrology 5. Anemia 6. Baseline dementia 7. sHTN Stable CV status Cont plavix/asa/statin His outcome will be determined in large part by his neurological recovery Consult downstairs maid and neurology Will f/u TTE Discussed with family at length. All questions and concerns were addressed. - Patient Problems (1) Cardiac arrest Current Visit: Yes Status: Acute (2) STEMI (ST elevation myocardial infarction) Current Visit: Yes Status: Acute Qualifiers: Involved coronary artery: unspecified coronary artery Qualified Code(s): I21.3 - ST elevation (STEMI) myocardial infarction of unspecified site Subjective Date of service: 04/14/19 Interval history: intubated, nonresponsive Objective Vital Signs Temp Pulse Pulse Resp BP BP Pulse Ox 04/14/19 06:41 98 H 20 110/62 100 04/14/19 06:30 98 H 20 110/62 100 04/14/19 06:21 100 H 21 129/65 100 04/14/19 06:11 102 H 19 125/65 100 04/14/19 06:00 100 H 20 125/65 100 04/14/19 05:51 102 H 20 124/66 100 04/14/19 05:41 100 H 21 155/57 100 04/14/19 05:30 99 H 20 155/57 100 04/14/19 05:21 99 H 20 142/73 100 04/14/19 05:11 99 H 21 134/74 100 04/14/19 05:00 96 H 20 134/74 100 04/14/19 04:51 96 H 19 134/77 100 04/14/19 04:48 94 H 122/64 100 04/14/19 04:41 95 H 19 122/64 100 04/14/19 04:30 88 21 122/64 100 04/14/19 04:21 97 H 19 134/58 100 04/14/19 04:11 94 H 13 147/60 100 04/14/19 04:01 96 H 20 147/60 100 04/14/19 03:51 97 H 20 141/79 100 04/14/19 03:41 98 H 20 129/54 100 04/14/19 03:31 99 H 19 129/54 100 04/14/19 03:23 100.8 F H 04/14/19 03:21 98 H 20 135/40 100 04/14/19 03:11 99 H 20 135/40 100 04/14/19 03:01 97 H 20 135/40 100 04/14/19 02:59 97 H 20 100 04/14/19 02:51 98 H 20 102/69 100 04/14/19 02:41 98 H 20 102/69 100 04/14/19 02:31 97 H 20 102/69 100 04/14/19 02:21 98 H 20 138/85 100 04/14/19 02:11 100 H 20 126/76 100 04/14/19 02:00 98 H 20 126/76 100 04/14/19 01:51 100 H 19 138/85 100 04/14/19 01:41 103 H 20 116/74 100 04/14/19 01:30 103 H 21 116/74 100 04/14/19 01:21 104 H 21 152/79 100 04/14/19 01:11 105 H 20 142/73 100 04/14/19 01:00 104 H 20 142/73 100 04/14/19 00:51 105 H 21 152/79 100 04/14/19 00:41 104 H 20 142/83 100 04/14/19 00:30 102 H 20 142/83 100 04/14/19 00:29 105 H 04/14/19 00:21 102 H 20 168/81 100 04/14/19 00:13 102 H 19 138/82 100 04/14/19 00:11 102 H 20 138/82 100 04/14/19 00:00 106 H 19 170/80 100 04/13/19 23:54 105 H 19 149/81 100 04/13/19 23:52 105 H 158/75 100 04/13/19 23:50 104 H 20 168/81 100 04/13/19 23:48 97.9 F 04/13/19 23:40 102 H 18 165/87 100 04/13/19 23:30 104 H 20 149/81 100 04/13/19 23:20 100 H 20 152/83 100 04/13/19 23:15 90 19 100 04/13/19 23:10 102 H 20 139/76 100 04/13/19 23:00 97 H 20 138/75 100 04/13/19 22:50 101 H 21 150/77 100 04/13/19 22:40 101 H 20 141/64 100 04/13/19 22:30 100 H 19 139/87 100 04/13/19 22:27 99 H 19 136/90 100 04/13/19 22:21 97 H 17 152/82 95 04/13/19 22:11 97 H 19 145/83 100 04/13/19 22:00 98 H 19 145/83 100 04/13/19 21:51 97 H 20 152/82 100 04/13/19 21:41 94 H 20 160/82 100 04/13/19 21:31 95 H 19 160/82 100 04/13/19 21:26 90 16 100 04/13/19 21:21 96 H 19 160/82 100 04/13/19 21:11 92 H 19 161/87 100 04/13/19 21:00 91 H 17 175/88 100 04/13/19 20:51 85 20 160/82 100 04/13/19 20:41 96 H 17 179/94 100 04/13/19 20:30 94 H 20 100 04/13/19 20:29 18 04/13/19 20:21 81 19 160/77 04/13/19 20:18 83 20 164/82 100 04/13/19 20:15 82 20 168/85 100 04/13/19 20:00 97.1 F L 04/13/19 19:31 76 131/77 100 04/13/19 19:30 76 20 123/70 100 04/13/19 19:26 97.8 F 79 20 154/79 100 04/13/19 18:25 86 17 167/91 100 04/13/19 17:00 80 16 186/100 100 - Labs and Meds Cardiac Enzymes 04/13/19 04/13/19 04/14/19 Range/Units 17:09 21:39 05:08 AST 125 H 120 H (5-40) units/L CK-MB (CK-2) 5.0 H 4.9 H (0.0-4.0) ng/mL Coagulation 04/13/19 Range/Units 17:05 PT 13.6 (12.2-14.9) Sec. INR 0.98 (0.87-1.13) APTT 27.9 (24.2-36.6) Sec. Lipids 04/13/19 Range/Units 17:09 Triglycerides 62 (2-149) mg/dL Cholesterol 141 (50-199) mg/dL HDL Cholesterol 69 H (40-59) mg/dL Cholesterol/HDL Ratio 2.04 % CBC 04/13/19 04/14/19 Range/Units 17:05 05:08 WBC 9.7 7.2 (4.5-11.0) K/mm3 RBC 3.27 L 2.68 L (3.65-5.03) M/mm3 Hgb 9.7 L 7.9 L (11.8-15.2) gm/dl Hct 30.8 L 24.6 L D (35.5-45.6) % Plt Count 227 181 (140-440) K/mm3 Lymph # 3.6 1.1 L (1.2-5.4) K/mm3 [place] # 0.6 0.6 (0.0-0.8) K/mm3 Eos # 0.3 0.1 (0.0-0.4) K/mm3 Baso # 0.1 0.0 (0.0-0.1) K/mm3 Comprehensive Metabolic Panel 04/13/19 04/13/19 04/14/19 Range/Units 17:09 21:39 05:08 Sodium 141 134 L 138 (137-145) mmol/L Potassium 3.1 L 3.6 4.8 D (3.6-5.0) mmol/L Chloride 95.5 L 93.1 L 95.7 L (98-107) mmol/L Carbon Dioxide 21 L 25 27 (22-30) mmol/L BUN 18 22 H 30 H (9-20) mg/dL Creatinine 4.6 H 5.5 H 6.3 H (0.8-1.5) mg/dL Glucose 176 H 77 130 H (75-100) mg/dL Calcium 9.9 9.0 8.8 (8.4-10.2) mg/dL AST 125 H 120 H (5-40) units/L ALT 106 H 94 H (7-56) units/L Alkaline Phosphatase 75 66 (35-129) units/L Total Protein 7.9 7.0 (6.3-8.2) g/dL Albumin 3.8 L 3.3 L (3.9-5) g/dL
--- NOTE | 2019-04-14 11:29 | Consultation ---
History of Present Illness Consult date: 04/14/19 Requesting physician: QUINCY SEQUEIRA Reason for consult: other (S/P Cardiac Arrest) History of present illness: PULMONARY/CCM CONSULT NOTE (Full dictation # [id number]) Please see dictated notes for full details Past History Past Medical History: No medical history, other (UTO) Past Surgical History: No surgical history, Other (UTO) Social history: . denies: smoking, alcohol abuse, prescription drug abuse Family history: no significant family history, other (UTO) Medications and Allergies Allergies Allergy/AdvReac Type Severity Reaction Status Date / Time No Known Allergies Allergy Unverified 04/13/19 17:02 Home Medications Medication Instructions Recorded Confirmed Last Taken Type Calcium Acetate [Phoslo] 1,334 mg PO TID 04/14/19 04/14/19 Unknown History Clonidine HCl [Kapvay] 0.1 mg PO BID 04/14/19 04/14/19 Unknown History Clopidogrel [Plavix] 75 mg PO QDAY 04/14/19 04/14/19 Unknown History Donepezil [Aricept] 5 mg PO QDIPM 04/14/19 04/14/19 Unknown History Gabapentin 300 mg PO TID 04/14/19 04/14/19 Unknown History Levothyroxine [Synthroid] 50 mcg PO QAM 04/14/19 04/14/19 Unknown History Metoprolol Xl [Metoprolol 50 mg PO QDAY 04/14/19 04/14/19 Unknown History SUCCINATE ER TAB] RX: Insulin Aspart Prot/Aspart(Nf) 4 unit IM BID 04/14/19 04/14/19 Unknown History [NovoLOG Mix 70/30 VIAL] RX: Omeprazole 40 mg PO DAILY 04/14/19 04/14/19 Unknown History Sevelamer Carbonate [Renvela] 1,600 mg PO TIDWM 04/14/19 04/14/19 Unknown History Active Meds: Active Medications Albuterol (Proventil) 2.5 mg IH Q3HRT PRN PRN Reason: Shortness Of Breath Aspirin (Ecotrin) 325 mg PO QDAY [facility] Last Admin: 04/14/19 10:27 Dose: 325 mg Documented by: Clopidogrel Bisulfate (Plavix) 75 mg PO QDAY [facility] Last Admin: 04/14/19 10:28 Dose: 75 mg Documented by: Dextrose (D50w (25gm) Syringe) 50 ml IV PRN PRN PRN Reason: Hypoglycemia Last Admin: 04/13/19 20:00 Dose: 50 ml Documented by: Fentanyl (Sublimaze) 50 mcg IV Q10MIN PRN PRN Reason: ANALGESIA Last Admin: 04/13/19 17:20 Dose: 50 mcg Documented by: Hydrophilic Ointment (Vaseline Lip Therapy) 1 applic TP Q2HR PRN PRN Reason: Dry Lips Nicardipine HCl 50 mg/ Sodium (Chloride) 250 mls @ 25 mls/hr IV TITR [facility]; Protocol Fentanyl Citrate (Fentanyl Drip Premix) 2,000 mcg in 100 mls @ 5.9 mls/hr IV TITR [facility]; Protocol Midazolam HCl 100 mg/ Sodium (Chloride) 100 mls @ 2 mls/hr IV TITR [facility]; Protocol Last Titration: 04/14/19 08:14 Dose: 0 mg/hr, 0 mls/hr Documented by: Insulin Human Lispro (Humalog) 0 unit SUB-Q Q4HR [facility]; Protocol Last Admin: 04/14/19 10:27 Dose: 1 unit Documented by: Midazolam HCl (Versed) 2 mg IV Q10MIN PRN PRN Reason: Sedation Multi-Ingred Cream/Lotion/Oil/Oint (Artificial Tears Ophth Oint) 1 applic OU Q4HR PRN PRN Reason: Dry Eye(s) Ondansetron HCl (Zofran) 4 mg IV Q8H PRN PRN Reason: Nausea And Vomiting Sodium Chloride (Sodium Chloride Flush Syringe 10 Ml) 10 ml IV BID [facility] Last Admin: 04/14/19 05:51 Dose: 10 ml Documented by: Sodium Chloride (Sodium Chloride Flush Syringe 10 Ml) 10 ml IV PRN PRN PRN Reason: LINE FLUSH Physical Examination Vital signs: Vital Signs Pulse Resp BP Pulse Ox 80 16 186/100 100 04/13/19 17:00 04/13/19 17:00 04/13/19 17:00 04/13/19 17:00 Results - Laboratory Findings CBC and BMP: 04/14/19 05:08 04/14/19 05:08 ABG POC ABG pH 7.615 (7.35-7.45) H 04/14/19 04:48 POC ABG pO2 182 (80-105) H 04/14/19 04:48 POC ABG HCO3 30.1 (22-26 mml/L) 04/14/19 04:48 POC ABG Total CO2 31 (23-27mmol/L) 04/14/19 04:48 POC ABG O2 Sat 100 04/14/19 04:48 PT/INR, D-dimer PT 13.6 Sec. (12.2-14.9) 04/13/19 17:05 INR 0.98 (0.87-1.13) 04/13/19 17:05 Abnormal lab findings: Abnormal Labs 04/13/19 04/13/19 04/13/19 17:05 17:05 17:05 RBC 3.27 L Hgb 9.7 L Hct 30.8 L MCHC 31 L RDW 20.9 H Lymph % (Auto) 37.0 H [place] % (Auto) Lymph # Seg Neutrophils % Thrombin Time 14.7 L Activated Clotting Time POC ABG pH POC ABG pCO2 POC ABG pO2 Sodium Potassium Chloride Carbon Dioxide BUN Creatinine Glucose POC Glucose Lactic Acid AST ALT Total Creatine Kinase CK-MB (CK-2) Troponin T Albumin HDL Cholesterol Salicylates < 0.3 L Acetaminophen 04/13/19 04/13/19 04/13/19 17:05 17:09 17:47 RBC Hgb Hct MCHC RDW Lymph % (Auto) [place] % (Auto) Lymph # Seg Neutrophils % Thrombin Time Activated Clotting Time POC ABG pH POC ABG pCO2 POC ABG pO2 Sodium Potassium 3.1 L Chloride 95.5 L Carbon Dioxide 21 L BUN Creatinine 4.6 H Glucose 176 H POC Glucose Lactic Acid 10.60 H* AST 125 H ALT 106 H Total Creatine Kinase 233 H CK-MB (CK-2) 5.0 H Troponin T 0.157 H* Albumin 3.8 L HDL Cholesterol 69 H Salicylates Acetaminophen < 5.0 L 04/13/19 04/13/19 04/13/19 17:59 19:31 20:05 RBC Hgb Hct MCHC RDW Lymph % (Auto) [place] % (Auto) Lymph # Seg Neutrophils % Thrombin Time Activated Clotting Time POC ABG pH POC ABG pCO2 47.8 H POC ABG pO2 362 H Sodium Potassium Chloride Carbon Dioxide BUN Creatinine Glucose POC Glucose < 40 L Lactic Acid 3.80 H* AST ALT Total Creatine Kinase CK-MB (CK-2) Troponin T Albumin HDL Cholesterol Salicylates Acetaminophen 04/13/19 04/13/19 04/13/19 21:16 21:39 21:39 RBC Hgb Hct MCHC RDW Lymph % (Auto) [place] % (Auto) Lymph # Seg Neutrophils % Thrombin Time Activated Clotting Time 208 H POC ABG pH POC ABG pCO2 POC ABG pO2 Sodium 134 L Potassium Chloride 93.1 L Carbon Dioxide BUN 22 H Creatinine 5.5 H Glucose POC Glucose Lactic Acid 3.90 H* AST 120 H ALT 94 H Total Creatine Kinase CK-MB (CK-2) Troponin T Albumin 3.3 L HDL Cholesterol Salicylates Acetaminophen 04/13/19 04/13/19 04/14/19 21:53 22:15 00:21 RBC Hgb Hct MCHC RDW Lymph % (Auto) [place] % (Auto) Lymph # Seg Neutrophils % Thrombin Time Activated Clotting Time 158 H POC ABG pH POC ABG pCO2 POC ABG pO2 Sodium Potassium Chloride Carbon Dioxide BUN Creatinine Glucose POC Glucose 106 H Lactic Acid 2.80 H* AST ALT Total Creatine Kinase CK-MB (CK-2) Troponin T Albumin HDL Cholesterol Salicylates Acetaminophen 04/14/19 04/14/19 04/14/19 00:25 04:06 04:48 RBC Hgb Hct MCHC RDW Lymph % (Auto) [place] % (Auto) Lymph # Seg Neutrophils % Thrombin Time Activated Clotting Time POC ABG pH 7.615 H POC ABG pCO2 POC ABG pO2 182 H Sodium Potassium Chloride Carbon Dioxide BUN Creatinine Glucose POC Glucose 189 H 148 H Lactic Acid AST ALT Total Creatine Kinase CK-MB (CK-2) Troponin T Albumin HDL Cholesterol Salicylates Acetaminophen 04/14/19 04/14/19 04/14/19 05:08 05:08 05:08 RBC 2.68 L Hgb 7.9 L Hct 24.6 L D MCHC RDW 20.4 H Lymph % (Auto) [place] % (Auto) 7.8 H Lymph # 1.1 L Seg Neutrophils % 74.3 H Thrombin Time Activated Clotting Time POC ABG pH POC ABG pCO2 POC ABG pO2 Sodium Potassium Chloride 95.7 L Carbon Dioxide BUN 30 H Creatinine 6.3 H Glucose 130 H POC Glucose Lactic Acid 2.50 H* AST ALT Total Creatine Kinase 273 H CK-MB (CK-2) 4.9 H Troponin T 0.287 H* D Albumin HDL Cholesterol Salicylates Acetaminophen 04/14/19 04/14/19 04/14/19 05:19 09:38 09:48 RBC Hgb Hct MCHC RDW Lymph % (Auto) [place] % (Auto) Lymph # Seg Neutrophils % Thrombin Time Activated Clotting Time POC ABG pH POC ABG pCO2 POC ABG pO2 Sodium Potassium Chloride Carbon Dioxide BUN Creatinine Glucose POC Glucose 196 H 161 H Lactic Acid 2.50 H* AST ALT Total Creatine Kinase CK-MB (CK-2) Troponin T Albumin HDL Cholesterol Salicylates Acetaminophen
--- NOTE | 2019-04-14 11:33 | Consultation ---
History of Present Illness - Reason for Consult Consult date: 04/14/19 - History of Present Illness patient is 73 year old male with ESRD in HD since 2010 according to his family, he was admitted to the ICU after he was found down, he underwent CPR for 4-5 mins and was intubated, EKG was suggestive of STEMI he had LHC with PCI, currently he is intubated and sedated, family at bedside, they stated his last dialysis was possibly yesterday, they do not know his trapper bird's name, renal consult was requested for HD management Past History Past Medical History: No medical history, other (UTO) Past Surgical History: No surgical history, Other (UTO) Social history: . denies: smoking, alcohol abuse, prescription drug abuse Family history: no significant family history, other (UTO) Medications and Allergies Allergies Allergy/AdvReac Type Severity Reaction Status Date / Time No Known Allergies Allergy Unverified 04/13/19 17:02 Home Medications Medication Instructions Recorded Confirmed Last Taken Type Calcium Acetate [Phoslo] 1,334 mg PO TID 04/14/19 04/14/19 Unknown History Clonidine HCl [Kapvay] 0.1 mg PO BID 04/14/19 04/14/19 Unknown History Clopidogrel [Plavix] 75 mg PO QDAY 04/14/19 04/14/19 Unknown History Donepezil [Aricept] 5 mg PO QDIPM 04/14/19 04/14/19 Unknown History Gabapentin 300 mg PO TID 04/14/19 04/14/19 Unknown History Insulin Aspart Prot/Aspart(Nf) 4 unit IM BID 04/14/19 04/14/19 Unknown History [NovoLOG Mix 70/30 VIAL] Levothyroxine [Synthroid] 50 mcg PO QAM 04/14/19 04/14/19 Unknown History Metoprolol Xl [Metoprolol 50 mg PO QDAY 04/14/19 04/14/19 Unknown History SUCCINATE ER TAB] Omeprazole 40 mg PO DAILY 04/14/19 04/14/19 Unknown History Sevelamer Carbonate [Renvela] 1,600 mg PO TIDWM 04/14/19 04/14/19 Unknown History Active Meds: Active Medications Albuterol (Proventil) 2.5 mg IH Q3HRT PRN PRN Reason: Shortness Of Breath Aspirin (Ecotrin) 325 mg PO QDAY [facility] Last Admin: 04/14/19 10:27 Dose: 325 mg Documented by: Clopidogrel Bisulfate (Plavix) 75 mg PO QDAY [facility] Last Admin: 04/14/19 10:28 Dose: 75 mg Documented by: Dextrose (D50w (25gm) Syringe) 50 ml IV PRN PRN PRN Reason: Hypoglycemia Last Admin: 04/13/19 20:00 Dose: 50 ml Documented by: Fentanyl (Sublimaze) 50 mcg IV Q10MIN PRN PRN Reason: ANALGESIA Last Admin: 04/13/19 17:20 Dose: 50 mcg Documented by: Hydrophilic Ointment (Vaseline Lip Therapy) 1 applic TP Q2HR PRN PRN Reason: Dry Lips Nicardipine HCl 50 mg/ Sodium (Chloride) 250 mls @ 25 mls/hr IV TITR [facility]; Protocol Fentanyl Citrate (Fentanyl Drip Premix) 2,000 mcg in 100 mls @ 5.9 mls/hr IV TITR [facility]; Protocol Midazolam HCl 100 mg/ Sodium (Chloride) 100 mls @ 2 mls/hr IV TITR [facility]; Protocol Last Titration: 04/14/19 08:14 Dose: 0 mg/hr, 0 mls/hr Documented by: Insulin Human Lispro (Humalog) 0 unit SUB-Q Q4HR [facility]; Protocol Last Admin: 04/14/19 10:27 Dose: 1 unit Documented by: Midazolam HCl (Versed) 2 mg IV Q10MIN PRN PRN Reason: Sedation Multi-Ingred Cream/Lotion/Oil/Oint (Artificial Tears Ophth Oint) 1 applic OU Q4HR PRN PRN Reason: Dry Eye(s) Ondansetron HCl (Zofran) 4 mg IV Q8H PRN PRN Reason: Nausea And Vomiting Sodium Chloride (Sodium Chloride Flush Syringe 10 Ml) 10 ml IV BID [facility] Last Admin: 04/14/19 05:51 Dose: 10 ml Documented by: Sodium Chloride (Sodium Chloride Flush Syringe 10 Ml) 10 ml IV PRN PRN PRN Reason: LINE FLUSH Review of Systems ROS unobtainable: due to endotracheal tube Exam - Vital Signs Vital signs: Vital Signs Pulse Resp BP Pulse Ox 80 16 186/100 100 04/13/19 17:00 04/13/19 17:00 04/13/19 17:00 04/13/19 17:00 - General Appearance General appearance: well-developed, well-nourished EENT: ATNC, PERRL, mucous membranes moist Neck: Present: neck supple Respiratory: Decreased Breath Sounds Heart: regular, S1S2 Gastrointestinal: Present: normoactive bowel sounds. Absent: tenderness, distended Integumentary: no rash, warm and dry Neurologic: other (intubated and sedated) Musculoskeletal: Present: other (trace pitting edema in BLE) Psychiatric: other (sedated and intubated) Results - Lab Results 04/14/19 05:08 04/14/19 05:08 Most recent lab results Calcium 8.8 mg/dL (8.4-10.2) 04/14/19 05:08 Magnesium 1.90 mg/dL (1.7-2.3) 04/13/19 17:05 Assessment and Plan ESRD on HD HD today for clearance and volume removal will assess dialysis needs daily renally dose meds strict I&O daily weight Respiratory failure on mechanical ventilation per ICU team STEMI (ST elevation myocardial infarction) Cardiac arrest s/p LHC with PCI per cardiology Lance bonilla MD [phone]
--- NOTE | 2019-04-14 12:18 | XRay Report ---
AP CHEST: HISTORY: Endotracheal tube placement This examination is just presented to me for interpretation. An endotracheal tube has been inserted which terminates 4.4 cm superior to the katia. AP view of the chest demonstrates a normal mediastinal and cardiac contour with clear lungs and normal bony and soft tissue structures. IMPRESSION: Unremarkable AP chest.
[2019-04-14] MEDS ORDERED: ATIVAN IV ONE (13:00)
[2019-04-14] MEDS ORDERED: KEPPRA 1,000 MG in D5W 100 ML IV SCH (13:00)
[2019-04-14] MEDS: KEPPRA 1,000 MG/NS 0.75% 100ML 1,000 MG/100 ML BAG IV SCH ×2 (13:10→22:55)
--- NOTE | 2019-04-14 13:26 | Consultation ---
Past History Past Medical History: No medical history, other (UTO) Past Surgical History: No surgical history, Other (UTO) Social history: . denies: smoking, alcohol abuse, prescription drug abuse Family history: no significant family history, other (UTO) Medications and Allergies Allergies Allergy/AdvReac Type Severity Reaction Status Date / Time No Known Allergies Allergy Unverified 04/13/19 17:02 Home Medications Medication Instructions Recorded Confirmed Last Taken Type Calcium Acetate [Phoslo] 1,334 mg PO TID 04/14/19 04/14/19 Unknown History Clonidine HCl [Kapvay] 0.1 mg PO BID 04/14/19 04/14/19 Unknown History Clopidogrel [Plavix] 75 mg PO QDAY 04/14/19 04/14/19 Unknown History Donepezil [Aricept] 5 mg PO QDIPM 04/14/19 04/14/19 Unknown History Gabapentin 300 mg PO TID 04/14/19 04/14/19 Unknown History Insulin Aspart Prot/Aspart(Nf) 4 unit IM BID 04/14/19 04/14/19 Unknown History [NovoLOG Mix 70/30 VIAL] Levothyroxine [Synthroid] 50 mcg PO QAM 04/14/19 04/14/19 Unknown History Metoprolol Xl [Metoprolol 50 mg PO QDAY 04/14/19 04/14/19 Unknown History SUCCINATE ER TAB] Omeprazole 40 mg PO DAILY 04/14/19 04/14/19 Unknown History Sevelamer Carbonate [Renvela] 1,600 mg PO TIDWM 04/14/19 04/14/19 Unknown History Active Meds: Active Medications Albuterol (Proventil) 2.5 mg IH Q3HRT PRN PRN Reason: Shortness Of Breath Aspirin (Ecotrin) 325 mg PO QDAY [facility] Last Admin: 04/14/19 10:27 Dose: 325 mg Documented by: Clopidogrel Bisulfate (Plavix) 75 mg PO QDAY [facility] Last Admin: 04/14/19 10:28 Dose: 75 mg Documented by: Dextrose (D50w (25gm) Syringe) 50 ml IV PRN PRN PRN Reason: Hypoglycemia Last Admin: 04/13/19 20:00 Dose: 50 ml Documented by: Fentanyl (Sublimaze) 50 mcg IV Q10MIN PRN PRN Reason: ANALGESIA Last Admin: 04/13/19 17:20 Dose: 50 mcg Documented by: Hydrophilic Ointment (Vaseline Lip Therapy) 1 applic TP Q2HR PRN PRN Reason: Dry Lips Nicardipine HCl 50 mg/ Sodium (Chloride) 250 mls @ 25 mls/hr IV TITR [facility]; Protocol Fentanyl Citrate (Fentanyl Drip Premix) 2,000 mcg in 100 mls @ 5.9 mls/hr IV TITR [facility]; Protocol Midazolam HCl 100 mg/ Sodium (Chloride) 100 mls @ 2 mls/hr IV TITR [facility]; Protocol Last Titration: 04/14/19 08:14 Dose: 0 mg/hr, 0 mls/hr Documented by: Levetiracetam (Keppra 1,000 Mg/Ns 0.75% 100ml) 1,000 mg in 100 mls @ 400 mls/hr IV Q12HR [facility] Last Admin: 04/14/19 13:10 Dose: 400 mls/hr Documented by: Insulin Human Lispro (Humalog) 0 unit SUB-Q Q4HR [facility]; Protocol Last Admin: 04/14/19 10:27 Dose: 1 unit Documented by: Midazolam HCl (Versed) 2 mg IV Q10MIN PRN PRN Reason: Sedation Multi-Ingred Cream/Lotion/Oil/Oint (Artificial Tears Ophth Oint) 1 applic OU Q4HR PRN PRN Reason: Dry Eye(s) Ondansetron HCl (Zofran) 4 mg IV Q8H PRN PRN Reason: Nausea And Vomiting Sodium Chloride (Sodium Chloride Flush Syringe 10 Ml) 10 ml IV BID [facility] Last Admin: 04/14/19 05:51 Dose: 10 ml Documented by: Sodium Chloride (Sodium Chloride Flush Syringe 10 Ml) 10 ml IV PRN PRN PRN Reason: LINE FLUSH Physical Examination - Vital Signs Vital Signs: Vital Signs Pulse Resp BP Pulse Ox 80 16 186/100 100 04/13/19 17:00 04/13/19 17:00 04/13/19 17:00 04/13/19 17:00 Results - Laboratory Findings CBC and BMP: 04/14/19 05:08 04/14/19 05:08 Abnormal Lab Findings: Abnormal Labs 04/13/19 04/13/19 04/13/19 17:05 17:05 17:05 RBC 3.27 L Hgb 9.7 L Hct 30.8 L MCHC 31 L RDW 20.9 H Lymph % (Auto) 37.0 H [place] % (Auto) Lymph # Seg Neutrophils % Thrombin Time 14.7 L Activated Clotting Time POC ABG pH POC ABG pCO2 POC ABG pO2 Sodium Potassium Chloride Carbon Dioxide BUN Creatinine Glucose POC Glucose Lactic Acid AST ALT Total Creatine Kinase CK-MB (CK-2) Troponin T Albumin HDL Cholesterol Salicylates < 0.3 L Acetaminophen 04/13/19 04/13/19 04/13/19 17:05 17:09 17:47 RBC Hgb Hct MCHC RDW Lymph % (Auto) [place] % (Auto) Lymph # Seg Neutrophils % Thrombin Time Activated Clotting Time POC ABG pH POC ABG pCO2 POC ABG pO2 Sodium Potassium 3.1 L Chloride 95.5 L Carbon Dioxide 21 L BUN Creatinine 4.6 H Glucose 176 H POC Glucose Lactic Acid 10.60 H* AST 125 H ALT 106 H Total Creatine Kinase 233 H CK-MB (CK-2) 5.0 H Troponin T 0.157 H* Albumin 3.8 L HDL Cholesterol 69 H Salicylates Acetaminophen < 5.0 L 04/13/19 04/13/19 04/13/19 17:59 19:31 20:05 RBC Hgb Hct MCHC RDW Lymph % (Auto) [place] % (Auto) Lymph # Seg Neutrophils % Thrombin Time Activated Clotting Time POC ABG pH POC ABG pCO2 47.8 H POC ABG pO2 362 H Sodium Potassium Chloride Carbon Dioxide BUN Creatinine Glucose POC Glucose < 40 L Lactic Acid 3.80 H* AST ALT Total Creatine Kinase CK-MB (CK-2) Troponin T Albumin HDL Cholesterol Salicylates Acetaminophen 04/13/19 04/13/19 04/13/19 21:16 21:39 21:39 RBC Hgb Hct MCHC RDW Lymph % (Auto) [place] % (Auto) Lymph # Seg Neutrophils % Thrombin Time Activated Clotting Time 208 H POC ABG pH POC ABG pCO2 POC ABG pO2 Sodium 134 L Potassium Chloride 93.1 L Carbon Dioxide BUN 22 H Creatinine 5.5 H Glucose POC Glucose Lactic Acid 3.90 H* AST 120 H ALT 94 H Total Creatine Kinase CK-MB (CK-2) Troponin T Albumin 3.3 L HDL Cholesterol Salicylates Acetaminophen 04/13/19 04/13/19 04/14/19 21:53 22:15 00:21 RBC Hgb Hct MCHC RDW Lymph % (Auto) [place] % (Auto) Lymph # Seg Neutrophils % Thrombin Time Activated Clotting Time 158 H POC ABG pH POC ABG pCO2 POC ABG pO2 Sodium Potassium Chloride Carbon Dioxide BUN Creatinine Glucose POC Glucose 106 H Lactic Acid 2.80 H* AST ALT Total Creatine Kinase CK-MB (CK-2) Troponin T Albumin HDL Cholesterol Salicylates Acetaminophen 04/14/19 04/14/19 04/14/19 00:25 04:06 04:48 RBC Hgb Hct MCHC RDW Lymph % (Auto) [place] % (Auto) Lymph # Seg Neutrophils % Thrombin Time Activated Clotting Time POC ABG pH 7.615 H POC ABG pCO2 POC ABG pO2 182 H Sodium Potassium Chloride Carbon Dioxide BUN Creatinine Glucose POC Glucose 189 H 148 H Lactic Acid AST ALT Total Creatine Kinase CK-MB (CK-2) Troponin T Albumin HDL Cholesterol Salicylates Acetaminophen 04/14/19 04/14/19 04/14/19 05:08 05:08 05:08 RBC 2.68 L Hgb 7.9 L Hct 24.6 L D MCHC RDW 20.4 H Lymph % (Auto) [place] % (Auto) 7.8 H Lymph # 1.1 L Seg Neutrophils % 74.3 H Thrombin Time Activated Clotting Time POC ABG pH POC ABG pCO2 POC ABG pO2 Sodium Potassium Chloride 95.7 L Carbon Dioxide BUN 30 H Creatinine 6.3 H Glucose 130 H POC Glucose Lactic Acid 2.50 H* AST ALT Total Creatine Kinase 273 H CK-MB (CK-2) 4.9 H Troponin T 0.287 H* D Albumin HDL Cholesterol Salicylates Acetaminophen 04/14/19 04/14/19 04/14/19 05:19 09:38 09:48 RBC Hgb Hct MCHC RDW Lymph % (Auto) [place] % (Auto) Lymph # Seg Neutrophils % Thrombin Time Activated Clotting Time POC ABG pH POC ABG pCO2 POC ABG pO2 Sodium Potassium Chloride Carbon Dioxide BUN Creatinine Glucose POC Glucose 196 H 161 H Lactic Acid 2.50 H* AST ALT Total Creatine Kinase CK-MB (CK-2) Troponin T Albumin HDL Cholesterol Salicylates Acetaminophen Assessment and Plan Mr. Abernathy is a 73-year-old gentleman with history of dementia and endstage renal disease, hypertension who was transported back home after dialysis on 04/13/2019. On his home he became unresponsive and the rickshaw driver of the van called EMS and he was found pulse less and resuscitated and transported to the emergency department. EKG in the emergency department showed evidence of myocardial infarction. Cardiology was called and the patient was taken to the earth science laboratory technician stent placed. Patient was transferred to the coronary care unit. Attending physician noted some repeated movement of the lips today which initiated this Neuro consult. Physical examination. Patient is verbally unresponsive, makes eye contact sporadically and has occasional repeated spontaneous blinking. Also has repeated movement of the lips. Does not move extremities. Reflexes could not be elicited. Bilateral downgoing toes. Pupils react to light, corneal reflexes present there is no facial asymmetry. Impression : Patient may have subclinical seizures in a background of hypoxic encephalopathy. Recommendation. Please start Ativan 2 mg now. Followed by Keppra thousand milligrams IV twice a day #2 EEG at bedside. #3 further recommendation to follow if needed after looking at the EEG recording.
--- NOTE | 2019-04-14 15:10 | Progress Note ---
Assessment and Plan Assessment and plan: 73 YO Male with Obesity presents to ED for evaluation. Pt is unresponsive and unable to provide history. Pt history taken from EMS, and ED staff. As per staff, the patient was found down and unresponsive in his van. EMS was notified and upon arrival the patient was found to be in cardiac arrest. Pt initiated on ACLS protocol and transported to [facility]. Pt intubated and a Piyush airway placed. Pt was in PEA for 4-5 minutes as per EMS with return of perfusing rhythm. Pt seen and evaluated in ED and found to be hypertensive with clinical findings consistent with Anoxic Brain Injury as well as Acute Respiratory Failure and EKG changes consistent with STEMI. PT intubated with a definitive airway in ED and p laced on vent support. Cardiology consulted in ED and patient taken urgently to the laboratory technology teacher. Pt admitted to ICU. Pulmonary team consulted in ED. No further history obtainable. No prior admission for review. No medication listed at time of admission for reconciliation. Anoxic Brain Injury/Anoxic encephalopathy STEMI S/P Cardiac arrest Acute Respiratory failure on full mechanical ventilation Seizure ESRD Acute Blood loss Anemia secondary to GI bleed Metabolic Acidosis DM HTN Baseline dementia GI BLEED Plan Continue supportive care in this critically ill patient Neurology consult, Discussed with them, patient to be started on Keppra Critical care input noted Discussed with cardiology, PCI done, Summer Sessions Director input noted Replace electrolytes Monitor H/H, GI consulted Transfuse to keep H/H GREATER THAN 10 Family updated on poor prognosis LATE entry The high probability of a clinically significant, sudden or life threatening deterioration of the [cardiac, pulmonary, renal, neuro] system(s) required my full and direct attention, intervention and personal management. The aggregate critical care time was [65] minutes. This time is in addition to time spent performing reported procedures but includes the following: [x] Data Review and interpretation [x] Patient assessment and monitoring of vital signs [x] Documentation [x] Medication orders and management History Interval history: Patient seen and examined, family at bedside, patient noted to have tonic clonic jerks Hospitalist Physical - Physical exam Narrative exam: General appearance: Present: severe distress, obese, on mechanical ventilation, unresponsive without sedation, clonic twitches noted around lips and eyes - EENT Eyes: Present: miosis - Neck Neck: Present: supple, normal ROM - Respiratory Respiratory effort: on full ventilatory support Respiratory: bilateral: diminished - Cardiovascular Heart Sounds: Present: S1 & S2. Absent: rub, click - Extremities Extremities: pulses symmetrical, No edema Extremity abnormal: edema Peripheral Pulses: abnormal - Abdominal General gastrointestinal: Present: soft, non-tender, non-distended, normal bowel sounds Male genitourinary: Present: normal - Integumentary Integumentary: Present: clear, erythema, clammy - Musculoskeletal Musculoskeletal: generalized weakness - Psychiatric Psychiatric:unable to assess - Neurologic Neurologic: unresponsive, - Constitutional Vitals: Temp Pulse Resp BP Pulse Ox 100.8 F H 107 H 20 136/73 100 04/14/19 03:23 04/14/19 09:50 04/14/19 06:41 04/14/19 09:50 04/14/19 09:50 General appearance: Present: severe distress, obese Results - Labs CBC & Chem 7: 04/15/19 04:16 04/15/19 04:16 Labs: Laboratory Last Values WBC 7.2 K/mm3 (4.5-11.0) 04/14/19 05:08 RBC 2.68 M/mm3 (3.65-5.03) L 04/14/19 05:08 Hgb 7.9 gm/dl (11.8-15.2) L 04/14/19 05:08 Hct 24.6 % (35.5-45.6) L D 04/14/19 05:08 MCV 92 fl (84-94) 04/14/19 05:08 MCH 30 pg (28-32) 04/14/19 05:08 MCHC 32 % (32-34) 04/14/19 05:08 RDW 20.4 % (13.2-15.2) H 04/14/19 05:08 Plt Count 181 K/mm3 (140-440) 04/14/19 05:08 Lymph % (Auto) 15.8 % (13.4-35.0) 04/14/19 05:08 [place] % (Auto) 7.8 % (0.0-7.3) H 04/14/19 05:08 Eos % (Auto) 1.5 % (0.0-4.3) 04/14/19 05:08 Baso % (Auto) 0.6 % (0.0-1.8) 04/14/19 05:08 Lymph # 1.1 K/mm3 (1.2-5.4) L 04/14/19 05:08 [place] # 0.6 K/mm3 (0.0-0.8) 04/14/19 05:08 Eos # 0.1 K/mm3 (0.0-0.4) 04/14/19 05:08 Baso # 0.0 K/mm3 (0.0-0.1) 04/14/19 05:08 Seg Neutrophils % 74.3 % (40.0-70.0) H 04/14/19 05:08 Seg Neutrophils # 5.3 K/mm3 (1.8-7.7) 04/14/19 05:08 PT 13.6 Sec. (12.2-14.9) 04/13/19 17:05 INR 0.98 (0.87-1.13) 04/13/19 17:05 APTT 27.9 Sec. (24.2-36.6) 04/13/19 17:05 14.7 Sec. (15.1-19.6) L 04/13/19 17:05 158 (74-137) H 04/13/19 22:15 POC ABG pH 7.615 (7.35-7.45) H 04/14/19 04:48 POC ABG pCO2 47.8 (35-45) H 04/13/19 17:59 POC ABG pO2 182 (80-105) H 04/14/19 04:48 POC ABG HCO3 30.1 (22-26 mml/L) 04/14/19 04:48 POC ABG Total CO2 31 (23-27mmol/L) 04/14/19 04:48 POC ABG O2 Sat 100 04/14/19 04:48 POC ABG Base Excess 9 ((-2) - (+3)mmol/L) 04/14/19 04:48 50 % 04/14/19 04:48 Sodium 138 mmol/L (137-145) 04/14/19 05:08 Potassium 4.8 mmol/L (3.6-5.0) D 04/14/19 05:08 Chloride 95.7 mmol/L (98-107) L 04/14/19 05:08 Carbon Dioxide 27 mmol/L (22-30) 04/14/19 05:08 20 mmol/L 04/14/19 05:08 BUN 30 mg/dL (9-20) H 04/14/19 05:08 6.3 mg/dL (0.8-1.5) H 04/14/19 05:08 Estimated GFR 11 ml/min 04/14/19 05:08 5 % 04/14/19 05:08 Glucose 130 mg/dL (75-100) H 04/14/19 05:08 POC Glucose 161 (70-105) H 04/14/19 09:38 Lactic Acid 2.50 mmol/L (0.7-2.0) H* 04/14/19 09:48 Calcium 8.8 mg/dL (8.4-10.2) 04/14/19 05:08 Magnesium 1.90 mg/dL (1.7-2.3) 04/13/19 17:05 0.40 mg/dL (0.1-1.2) 04/13/19 21:39 AST 120 units/L (5-40) H 04/13/19 21:39 ALT 94 units/L (7-56) H 04/13/19 21:39 66 units/L (35-129) 04/13/19 21:39 273 units/L (55-170) H 04/14/19 05:08 CK-MB (CK-2) 4.9 ng/mL (0.0-4.0) H 04/14/19 05:08 CK-MB (CK-2) Rel Index 1.7 (0-4) 04/14/19 05:08 0.287 ng/mL (0.00-0.029) H* D 04/14/19 05:08 7.0 g/dL (6.3-8.2) 04/13/19 21:39 3.3 g/dL (3.9-5) L 04/13/19 21:39 0.9 % 04/13/19 21:39 Triglycerides 62 mg/dL (2-149) 04/13/19 17:09 Cholesterol 141 mg/dL (50-199) 04/13/19 17:09 68 mg/dL (50-130) 04/13/19 17:09 69 mg/dL (40-59) H 04/13/19 17:09 2.04 % 04/13/19 17:09 Salicylates < 0.3 mg/dL (2.8-20.0) L 04/13/19 17:05 Acetaminophen < 5.0 ug/mL (10.0-30.0) L 04/13/19 17:05 Plasma/Serum Alcohol < 0.01 % (0-0.07) 04/13/19 17:05 Active Medications - Current Medications Current Medications: Generic Name Dose Route Start Last Admin Trade Name Freq PRN Reason Stop Dose Admin Albuterol 2.5 mg 04/13/19 18:26 Proventil IH Q3HRT PRN Shortness Of Breath Aspirin 325 mg 04/14/19 10:00 04/14/19 10:27 Ecotrin PO 325 mg QDAY RAKESH Administration Atorvastatin Calcium 40 mg 04/14/19 22:00 Lipitor PO QHS RAKESH Clopidogrel Bisulfate 75 mg 04/14/19 10:00 04/14/19 10:28 Plavix PO 75 mg QDAY RAKESH Administration Dextrose 50 ml 04/13/19 20:32 04/13/19 20:00 D50w (25gm) Syringe IV 50 ml PRN PRN Administration Hypoglycemia Fentanyl 50 mcg 04/13/19 17:15 04/13/19 17:20 Sublimaze IV 50 mcg Q10MIN PRN Administration ANALGESIA Hydrophilic Ointment 1 applic 04/13/19 17:15 Vaseline Lip Therapy TP Q2HR PRN Dry Lips Nicardipine HCl 50 mg/ Sodium 250 mls @ 25 mls/hr 04/13/19 18:00 Chloride IV TITR RAKESH Protocol 5 MG/HR Fentanyl Citrate 2,000 mcg in 100 mls @ 5.9 mls/hr 04/13/19 18:00 Fentanyl Drip Premix IV TITR RAKESH Protocol 1 MCG/KG/HR Midazolam HCl 100 mg/ Sodium 100 mls @ 2 mls/hr 04/13/19 18:00 04/14/19 08:14 Chloride IV 0 mg/hr TITR RAKESH 0 mls/hr Titration Protocol 2 MG/HR Levetiracetam 1,000 mg in 100 mls @ 400 mls/hr 04/14/19 14:00 04/14/19 13:10 Keppra 1,000 Mg/Ns 0.75% 100ml IV 400 mls/hr Q12HR RAKESH Administration Insulin Human Lispro 0 unit 05/30/19 22:00 04/14/19 10:27 Humalog SUB-Q 1 unit Q4HR RAKESH Administration Protocol Midazolam HCl 2 mg 04/13/19 17:15 Versed IV Q10MIN PRN Sedation Multi-Ingred Cream/Lotion/Oil/Oint 1 applic 04/13/19 17:15 Artificial Tears Ophth Oint OU Q4HR PRN Dry Eye(s) Ondansetron HCl 4 mg 04/13/19 18:26 Zofran IV Q8H PRN Nausea And Vomiting Sodium Chloride 10 ml 04/13/19 22:00 04/14/19 05:51 Sodium Chloride Flush Syringe 10 Ml IV 10 ml BID RAKESH Administration Sodium Chloride 10 ml 04/13/19 18:26 Sodium Chloride Flush Syringe 10 Ml IV PRN PRN LINE FLUSH Nutrition/Malnutrition Assess - Dietary Evaluation Nutrition/Malnutrition Findings: Nutrition Notes Start: 04/14/19 09:20 Freq: Status: Active Protocol: Document 04/14/19 09:20 LP (Rec: 04/14/19 09:28 LP [id number]) Nutrition Notes Need for Assessment generated from: MD Order Initial or Follow up Assessment Current Diagnosis Respiratory Failure Other Pertinent Diagnosis STEMI, Cardiac arrest Current Diet NPO Labs/Tests BUN 30 Cr 6.3 BG 130 Pertinent Medications Reviewed Height 5 ft 10 in Weight 84.4 kg Maud Body Weight (kg) 75.45 BMI 26.6 Subjective/Other Information Consult for diet eduation. Screen for MST and skin risk ( 14). Pt on vent. Burn Absent Trauma Absent #1 Nutrition Diagnosis Inadequate oral intake Etiology vent As Evidenced by Signs and Symptoms Pt unable to consume PO Is patient on ventilator? Yes Is Patient Ambulatory and/or Out of Bed No REE-([facility]-confined to bed) 1926.204 Calculation Used for Recommendations [facility] Additional Notes Protein needs are 101-169g (1. 2-2g/kg) Fluid needs are 1ml/kcal Nutrition Intervention Change Diet Order: TF consult or extubation Nutrition Support: Once consulted Vital 1.2 at 65ml/hr Flush with 100ml q4h Kcal 1,872 Protein (gm) 119 Fluid (mL) 1,265 Goal #1 TF consult or extubation Anticipated Discharge Needs: Unable to determine at this time Follow-Up By: 04/18/19 Additional Comments Follow for TF consult or extubation
--- NOTE | 2019-04-14 15:33 | Gastroenterology Consultation ---
<RAND MEZA - Last Filed: 04/14/19 16:02> History of Present Illness - Reason for Consult Consult date: 04/14/19 GI bleed Requesting physician: MAKEDA THACKER - History of Present Illness Patient is a 73 y/o male with PMH of DM, HTN, ESRD on HD, and baseline dementia? who was brought to [facility] by EMS in cardiac arrest after being found down and unresponsive. Upon arrival he was found to be hypertensive with clinical findings c/w anoxic brain injury, acute respiratory failure, and EKG with changes consistent with STEMI. He was taken emergently to [facility] by cardiology with stent placed. This afternoon, patient had a large bloody BM with dark maroon stool reported by nursing to which GI has been consulted. He is currently in ICU on vent receiving dialysis. Unable to provide history and no family at bedside (attempted to call family with no answer). Prior GI history unknown. No evidence of abdominal pain/distention or hematemesis. OGT w/o bloody output noted upon exam. On Plavix and ASA. Past History Past Medical History: diabetes, ESRD, hypertension Past Surgical History: No surgical history, Other (UTO) Social history: . denies: smoking, alcohol abuse, prescription drug abuse Family history: no significant family history, other (UTO) Medications and Allergies Allergies Allergy/AdvReac Type Severity Reaction Status Date / Time No Known Allergies Allergy Unverified 04/13/19 17:02 Home Medications Medication Instructions Recorded Confirmed Last Taken Type Calcium Acetate [Phoslo] 1,334 mg PO TID 04/14/19 04/14/19 Unknown History Clonidine HCl [Kapvay] 0.1 mg PO BID 04/14/19 04/14/19 Unknown History Clopidogrel [Plavix] 75 mg PO QDAY 04/14/19 04/14/19 Unknown History Donepezil [Aricept] 5 mg PO QDIPM 04/14/19 04/14/19 Unknown History Gabapentin 300 mg PO TID 04/14/19 04/14/19 Unknown History Insulin Aspart Prot/Aspart(Nf) 4 unit IM BID 04/14/19 04/14/19 Unknown History [NovoLOG Mix 70/30 VIAL] Levothyroxine [Synthroid] 50 mcg PO QAM 04/14/19 04/14/19 Unknown History Metoprolol Xl [Metoprolol 50 mg PO QDAY 04/14/19 04/14/19 Unknown History SUCCINATE ER TAB] Omeprazole 40 mg PO DAILY 04/14/19 04/14/19 Unknown History Sevelamer Carbonate [Renvela] 1,600 mg PO TIDWM 04/14/19 04/14/19 Unknown History Active Meds: Active Medications Albuterol (Proventil) 2.5 mg IH Q3HRT PRN PRN Reason: Shortness Of Breath Aspirin (Ecotrin) 325 mg PO QDAY [facility] Last Admin: 04/14/19 10:27 Dose: 325 mg Documented by: Atorvastatin Calcium (Lipitor) 40 mg PO QHS RAKESH Clopidogrel Bisulfate (Plavix) 75 mg PO QDAY [facility] Last Admin: 04/14/19 10:28 Dose: 75 mg Documented by: Dextrose (D50w (25gm) Syringe) 50 ml IV PRN PRN PRN Reason: Hypoglycemia Last Admin: 04/13/19 20:00 Dose: 50 ml Documented by: Fentanyl (Sublimaze) 50 mcg IV Q10MIN PRN PRN Reason: ANALGESIA Last Admin: 04/13/19 17:20 Dose: 50 mcg Documented by: Hydrophilic Ointment (Vaseline Lip Therapy) 1 applic TP Q2HR PRN PRN Reason: Dry Lips Nicardipine HCl 50 mg/ Sodium (Chloride) 250 mls @ 25 mls/hr IV TITR RAKESH; Protocol Fentanyl Citrate (Fentanyl Drip Premix) 2,000 mcg in 100 mls @ 5.9 mls/hr IV TITR RAKESH; Protocol Midazolam HCl 100 mg/ Sodium (Chloride) 100 mls @ 2 mls/hr IV TITR RAKESH; Protocol Last Titration: 04/14/19 08:14 Dose: 0 mg/hr, 0 mls/hr Documented by: Levetiracetam (Keppra 1,000 Mg/Ns 0.75% 100ml) 1,000 mg in 100 mls @ 400 mls/hr IV Q12HR RAKESH Last Admin: 04/14/19 13:10 Dose: 400 mls/hr Documented by: Insulin Human Lispro (Humalog) 0 unit SUB-Q Q4HR RAKESH; Protocol Last Admin: 04/14/19 10:27 Dose: 1 unit Documented by: Midazolam HCl (Versed) 2 mg IV Q10MIN PRN PRN Reason: Sedation Multi-Ingred Cream/Lotion/Oil/Oint (Artificial Tears Ophth Oint) 1 applic OU Q4HR PRN PRN Reason: Dry Eye(s) Ondansetron HCl (Zofran) 4 mg IV Q8H PRN PRN Reason: Nausea And Vomiting Sodium Chloride (Sodium Chloride Flush Syringe 10 Ml) 10 ml IV BID RAKESH Last Admin: 04/14/19 05:51 Dose: 10 ml Documented by: Sodium Chloride (Sodium Chloride Flush Syringe 10 Ml) 10 ml IV PRN PRN PRN Reason: LINE FLUSH medications reviewed/updated as required Review of Systems - Review of Systems ROS unobtainable: due to endotracheal tube, due to mental status Exam - Constitutional Vital Signs: Temp Pulse Resp BP Pulse Ox 100.8 F H 107 H 20 136/73 100 04/14/19 03:23 04/14/19 09:50 04/14/19 06:41 04/14/19 09:50 04/14/19 09:50 General appearance: other (in ICU on vent) - EENT ENT: other (+OGT) - Respiratory Respiratory: bilateral: diminished - Cardiovascular Rhythm: other (tachycardia) - Gastrointestinal General gastrointestinal: Present: soft, non-distended, normal bowel sounds - Labs CBC & Chem 7: 04/14/19 15:36 04/14/19 05:08 Lab Results: Laboratory Results - last 24 hr 04/13/19 04/13/19 04/13/19 17:05 17:05 17:05 WBC 9.7 RBC 3.27 L Hgb 9.7 L Hct 30.8 L MCV 94 MCH 30 MCHC 31 L RDW 20.9 H Plt Count 227 Lymph % (Auto) 37.0 H [place] % (Auto) 6.4 Eos % (Auto) 2.8 Baso % (Auto) 1.1 Lymph # 3.6 Kle[place] # 0.6 Eos # 0.3 Baso # 0.1 Seg Neutrophils % 52.7 Seg Neutrophils # 5.1 PT 13.6 INR 0.98 APTT 27.9 Thrombin Time 14.7 L Activated Clotting Time POC ABG pH POC ABG pCO2 POC ABG pO2 POC ABG HCO3 POC ABG Total CO2 POC ABG O2 Sat POC ABG Base Excess FiO2 Sodium Potassium Chloride Carbon Dioxide Anion Gap BUN Creatinine Estimated GFR BUN/Creatinine Ratio Glucose POC Glucose Lactic Acid Calcium Magnesium Total Bilirubin AST ALT Alkaline Phosphatase Total Creatine Kinase CK-MB (CK-2) CK-MB (CK-2) Rel Index Troponin T Total Protein Albumin Albumin/Globulin Ratio Triglycerides Cholesterol LDL Cholesterol Direct HDL Cholesterol Cholesterol/HDL Ratio Salicylates Acetaminophen Plasma/Serum Alcohol < 0.01 04/13/19 04/13/19 04/13/19 17:05 17:05 17:05 WBC RBC Hgb Hct MCV MCH MCHC RDW Plt Count Lymph % (Auto) [place] % (Auto) Eos % (Auto) Baso % (Auto) Lymph # [place] # Eos # Baso # Seg Neutrophils % Seg Neutrophils # PT INR APTT Thrombin Time Activated Clotting Time POC ABG pH POC ABG pCO2 POC ABG pO2 POC ABG HCO3 POC ABG Total CO2 POC ABG O2 Sat POC ABG Base Excess FiO2 Sodium Potassium Chloride Carbon Dioxide Anion Gap BUN Creatinine Estimated GFR BUN/Creatinine Ratio Glucose POC Glucose Lactic Acid Calcium Magnesium 1.90 Total Bilirubin AST ALT Alkaline Phosphatase Total Creatine Kinase CK-MB (CK-2) CK-MB (CK-2) Rel Index Troponin T Total Protein Albumin Albumin/Globulin Ratio Triglycerides Cholesterol LDL Cholesterol Direct HDL Cholesterol Cholesterol/HDL Ratio Salicylates < 0.3 L Acetaminophen < 5.0 L Plasma/Serum Alcohol 04/13/19 04/13/19 04/13/19 17:09 17:47 17:59 WBC RBC Hgb Hct MCV MCH MCHC RDW Plt Count Lymph % (Auto) [place] % (Auto) Eos % (Auto) Baso % (Auto) Lymph # [place] # Eos # Baso # Seg Neutrophils % Seg Neutrophils # PT INR APTT Thrombin Time Activated Clotting Time POC ABG pH 7.386 POC ABG pCO2 47.8 H POC ABG pO2 362 H POC ABG HCO3 28.7 POC ABG Total CO2 30 POC ABG O2 Sat 100 POC ABG Base Excess 4 FiO2 100 Sodium 141 Potassium 3.1 L Chloride 95.5 L Carbon Dioxide 21 L Anion Gap 28 BUN 18 Creatinine 4.6 H Estimated GFR 11 BUN/Creatinine Ratio 4 Glucose 176 H POC Glucose Lactic Acid 10.60 H* Calcium 9.9 Magnesium Total Bilirubin < 0.30 AST 125 H ALT 106 H Alkaline Phosphatase 75 Total Creatine Kinase 233 H CK-MB (CK-2) 5.0 H CK-MB (CK-2) Rel Index 2.1 Troponin T 0.157 H* Total Protein 7.9 Albumin 3.8 L Albumin/Globulin Ratio 0.9 Triglycerides 62 Cholesterol 141 LDL Cholesterol Direct 68 HDL Cholesterol 69 H Cholesterol/HDL Ratio 2.04 Salicylates Acetaminophen Plasma/Serum Alcohol 04/13/19 04/13/19 04/13/19 19:31 20:05 21:16 WBC RBC Hgb Hct MCV MCH MCHC RDW Plt Count Lymph % (Auto) [place] % (Auto) Eos % (Auto) Baso % (Auto) Lymph # [place] # Eos # Baso # Seg Neutrophils % Seg Neutrophils # PT INR APTT Thrombin Time Activated Clotting Time 208 H POC ABG pH POC ABG pCO2 POC ABG pO2 POC ABG HCO3 POC ABG Total CO2 POC ABG O2 Sat POC ABG Base Excess FiO2 Sodium Potassium Chloride Carbon Dioxide Anion Gap BUN Creatinine Estimated GFR BUN/Creatinine Ratio Glucose POC Glucose < 40 L Lactic Acid 3.80 H* Calcium Magnesium Total Bilirubin AST ALT Alkaline Phosphatase Total Creatine Kinase CK-MB (CK-2) CK-MB (CK-2) Rel Index Troponin T Total Protein Albumin Albumin/Globulin Ratio Triglycerides Cholesterol LDL Cholesterol Direct HDL Cholesterol Cholesterol/HDL Ratio Salicylates Acetaminophen Plasma/Serum Alcohol 04/13/19 04/13/19 04/13/19 21:39 21:39 21:53 WBC RBC Hgb Hct MCV MCH MCHC RDW Plt Count Lymph % (Auto) [place] % (Auto) Eos % (Auto) Baso % (Auto) Lymph # [place] # Eos # Baso # Seg Neutrophils % Seg Neutrophils # PT INR APTT Thrombin Time Activated Clotting Time POC ABG pH POC ABG pCO2 POC ABG pO2 POC ABG HCO3 POC ABG Total CO2 POC ABG O2 Sat POC ABG Base Excess FiO2 Sodium 134 L Potassium 3.6 Chloride 93.1 L Carbon Dioxide 25 Anion Gap 20 BUN 22 H Creatinine 5.5 H Estimated GFR 12 BUN/Creatinine Ratio 4 Glucose 77 POC Glucose 106 H Lactic Acid 3.90 H* Calcium 9.0 Magnesium Total Bilirubin 0.40 AST 120 H ALT 94 H Alkaline Phosphatase 66 Total Creatine Kinase CK-MB (CK-2) CK-MB (CK-2) Rel Index Troponin T Total Protein 7.0 Albumin 3.3 L Albumin/Globulin Ratio 0.9 Triglycerides Cholesterol LDL Cholesterol Direct HDL Cholesterol Cholesterol/HDL Ratio Salicylates Acetaminophen Plasma/Serum Alcohol 04/13/19 04/14/19 04/14/19 22:15 00:21 00:25 WBC RBC Hgb Hct MCV MCH MCHC RDW Plt Count Lymph % (Auto) [place] % (Auto) Eos % (Auto) Baso % (Auto) Lymph # [place] # Eos # Baso # Seg Neutrophils % Seg Neutrophils # PT INR APTT Thrombin Time Activated Clotting Time 158 H POC ABG pH POC ABG pCO2 POC ABG pO2 POC ABG HCO3 POC ABG Total CO2 POC ABG O2 Sat POC ABG Base Excess FiO2 Sodium Potassium Chloride Carbon Dioxide Anion Gap BUN Creatinine Estimated GFR BUN/Creatinine Ratio Glucose POC Glucose 189 H Lactic Acid 2.80 H* Calcium Magnesium Total Bilirubin AST ALT Alkaline Phosphatase Total Creatine Kinase CK-MB (CK-2) CK-MB (CK-2) Rel Index Troponin T Total Protein Albumin Albumin/Globulin Ratio Triglycerides Cholesterol LDL Cholesterol Direct HDL Cholesterol Cholesterol/HDL Ratio Salicylates Acetaminophen Plasma/Serum Alcohol 04/14/19 04/14/19 04/14/19 04:06 04:48 05:08 WBC 7.2 RBC 2.68 L Hgb 7.9 L Hct 24.6 L D MCV 92 MCH 30 MCHC 32 RDW 20.4 H Plt Count 181 Lymph % (Auto) 15.8 [place] % (Auto) 7.8 H Eos % (Auto) 1.5 Baso % (Auto) 0.6 Lymph # 1.1 L [place] # 0.6 Eos # 0.1 Baso # 0.0 Seg Neutrophils % 74.3 H Seg Neutrophils # 5.3 PT INR APTT Thrombin Time Activated Clotting Time POC ABG pH 7.615 H POC ABG pCO2 POC ABG pO2 182 H POC ABG HCO3 30.1 POC ABG Total CO2 31 POC ABG O2 Sat 100 POC ABG Base Excess 9 FiO2 50 Sodium Potassium Chloride Carbon Dioxide Anion Gap BUN Creatinine Estimated GFR BUN/Creatinine Ratio Glucose POC Glucose 148 H Lactic Acid Calcium Magnesium Total Bilirubin AST ALT Alkaline Phosphatase Total Creatine Kinase CK-MB (CK-2) CK-MB (CK-2) Rel Index Troponin T Total Protein Albumin Albumin/Globulin Ratio Triglycerides Cholesterol LDL Cholesterol Direct HDL Cholesterol Cholesterol/HDL Ratio Salicylates Acetaminophen Plasma/Serum Alcohol 04/14/19 04/14/19 04/14/19 05:08 05:08 05:19 WBC RBC Hgb Hct MCV MCH MCHC RDW Plt Count Lymph % (Auto) [place] % (Auto) Eos % (Auto) Baso % (Auto) Lymph # [place] # Eos # Baso # Seg Neutrophils % Seg Neutrophils # PT INR APTT Thrombin Time Activated Clotting Time POC ABG pH POC ABG pCO2 POC ABG pO2 POC ABG HCO3 POC ABG Total CO2 POC ABG O2 Sat POC ABG Base Excess FiO2 Sodium 138 Potassium 4.8 D Chloride 95.7 L Carbon Dioxide 27 Anion Gap 20 BUN 30 H Creatinine 6.3 H Estimated GFR 11 BUN/Creatinine Ratio 5 Glucose 130 H POC Glucose 196 H Lactic Acid 2.50 H* Calcium 8.8 Magnesium Total Bilirubin AST ALT Alkaline Phosphatase Total Creatine Kinase 273 H CK-MB (CK-2) 4.9 H CK-MB (CK-2) Rel Index 1.7 Troponin T 0.287 H* D Total Protein Albumin Albumin/Globulin Ratio Triglycerides Cholesterol LDL Cholesterol Direct HDL Cholesterol Cholesterol/HDL Ratio Salicylates Acetaminophen Plasma/Serum Alcohol 04/14/19 04/14/19 09:38 09:48 WBC RBC Hgb Hct MCV MCH MCHC RDW Plt Count Lymph % (Auto) [place] % (Auto) Eos % (Auto) Baso % (Auto) Lymph # [place] # Eos # Baso # Seg Neutrophils % Seg Neutrophils # PT INR APTT Thrombin Time Activated Clotting Time POC ABG pH POC ABG pCO2 POC ABG pO2 POC ABG HCO3 POC ABG Total CO2 POC ABG O2 Sat POC ABG Base Excess FiO2 Sodium Potassium Chloride Carbon Dioxide Anion Gap BUN Creatinine Estimated GFR BUN/Creatinine Ratio Glucose POC Glucose 161 H Lactic Acid 2.50 H* Calcium Magnesium Total Bilirubin AST ALT Alkaline Phosphatase Total Creatine Kinase CK-MB (CK-2) CK-MB (CK-2) Rel Index Troponin T Total Protein Albumin Albumin/Globulin Ratio Triglycerides Cholesterol LDL Cholesterol Direct HDL Cholesterol Cholesterol/HDL Ratio Salicylates Acetaminophen Plasma/Serum Alcohol Assessment and Plan 1.GI bleed -H/H 7.9/24.6-trending down -continue to monitor H/H and transfuse as needed -patient with a large bloody BM this afternoon with maroon stool per nursing s/p PCI with initiation of plavix/asa. No hematemesis or bloody output from OGT. -etiology unclear- prior GI history unknown -will order stat bleeding scan for further evaluation -start on Protonix drip -continue supportive care -further recommendations to follow bleeding scan results 2.cardiac arrest 3.STEMI-s/p PCI 4.anoxic encephalopathy-neurology following 5.ESRD on HD 6.anemia 7.baseline dementia 8.sHTN <PRATHER,GOLD Baig - Last Filed: 04/14/19 17:31> Medications and Allergies Active Meds: Active Medications Albuterol (Proventil) 2.5 mg IH Q3HRT PRN PRN Reason: Shortness Of Breath Aspirin (Ecotrin) 325 mg PO QDAY RAKESH Last Admin: 04/14/19 10:27 Dose: 325 mg Documented by: Atorvastatin Calcium (Lipitor) 40 mg PO QHS RAKESH Clopidogrel Bisulfate (Plavix) 75 mg PO QDAY RAKESH Last Admin: 04/14/19 10:28 Dose: 75 mg Documented by: Dextrose (D50w (25gm) Syringe) 50 ml IV PRN PRN PRN Reason: Hypoglycemia Last Admin: 04/13/19 20:00 Dose: 50 ml Documented by: Fentanyl (Sublimaze) 50 mcg IV Q10MIN PRN PRN Reason: ANALGESIA Last Admin: 04/13/19 17:20 Dose: 50 mcg Documented by: Hydrophilic Ointment (Vaseline Lip Therapy) 1 applic TP Q2HR PRN PRN Reason: Dry Lips Nicardipine HCl 50 mg/ Sodium (Chloride) 250 mls @ 25 mls/hr IV TITR RAKESH; Protocol Fentanyl Citrate (Fentanyl Drip Premix) 2,000 mcg in 100 mls @ 5.9 mls/hr IV TITR RAKESH; Protocol Midazolam HCl 100 mg/ Sodium (Chloride) 100 mls @ 2 mls/hr IV TITR RAKESH; Protocol Last Titration: 04/14/19 08:14 Dose: 0 mg/hr, 0 mls/hr Documented by: Levetiracetam (Keppra 1,000 Mg/Ns 0.75% 100ml) 1,000 mg in 100 mls @ 400 mls/hr IV Q12HR RAKESH Last Admin: 04/14/19 13:10 Dose: 400 mls/hr Documented by: Pantoprazole Sodium 80 mg/ (Sodium Chloride) 100 mls @ 10 mls/hr IV DIRECT RAKESH Insulin Human Lispro (Humalog) 0 unit SUB-Q Q4HR RAKESH; Protocol Last Admin: 04/14/19 10:27 Dose: 1 unit Documented by: Midazolam HCl (Versed) 2 mg IV Q10MIN PRN PRN Reason: Sedation Multi-Ingred Cream/Lotion/Oil/Oint (Artificial Tears Ophth Oint) 1 applic OU Q4HR PRN PRN Reason: Dry Eye(s) Ondansetron HCl (Zofran) 4 mg IV Q8H PRN PRN Reason: Nausea And Vomiting Sodium Chloride (Sodium Chloride Flush Syringe 10 Ml) 10 ml IV BID RAKESH Last Admin: 04/14/19 05:51 Dose: 10 ml Documented by: Sodium Chloride (Sodium Chloride Flush Syringe 10 Ml) 10 ml IV PRN PRN PRN Reason: LINE FLUSH Exam - Constitutional Vital Signs: Temp Pulse Resp BP Pulse Ox 98.1 F 100 H 22 105/62 100 04/14/19 14:30 04/14/19 17:15 04/14/19 16:11 04/14/19 17:15 04/14/19 16:11 - Labs CBC & Chem 7: 04/14/19 15:36 04/14/19 05:08 Lab Results: Laboratory Results - last 24 hr 04/13/19 04/13/19 04/13/19 17:05 17:05 17:05 WBC RBC Hgb Hct MCV MCH MCHC RDW Plt Count Lymph % (Auto) [place] % (Auto) Eos % (Auto) Baso % (Auto) Lymph # [place] # Eos # Baso # Seg Neutrophils % Seg Neutrophils # APTT 27.9 Thrombin Time 14.7 L Activated Clotting Time POC ABG pH POC ABG pCO2 POC ABG pO2 POC ABG HCO3 POC ABG Total CO2 POC ABG O2 Sat POC ABG Base Excess FiO2 Sodium Potassium Chloride Carbon Dioxide Anion Gap BUN Creatinine Estimated GFR BUN/Creatinine Ratio Glucose POC Glucose Lactic Acid Calcium Total Bilirubin AST ALT Alkaline Phosphatase Total Creatine Kinase CK-MB (CK-2) CK-MB (CK-2) Rel Index Troponin T Total Protein Albumin Albumin/Globulin Ratio Triglycerides Cholesterol LDL Cholesterol Direct HDL Cholesterol Cholesterol/HDL Ratio Salicylates < 0.3 L Acetaminophen Plasma/Serum Alcohol < 0.01 Hepatitis A IgM Ab Hep Bs Antigen Hep B Core IgM Ab Hepatitis C Antibody 04/13/19 04/13/19 04/13/19 17:05 17:09 17:47 WBC RBC Hgb Hct MCV MCH MCHC RDW Plt Count Lymph % (Auto) [place] % (Auto) Eos % (Auto) Baso % (Auto) Lymph # [place] # Eos # Baso # Seg Neutrophils % Seg Neutrophils # APTT Thrombin Time Activated Clotting Time POC ABG pH POC ABG pCO2 POC ABG pO2 POC ABG HCO3 POC ABG Total CO2 POC ABG O2 Sat POC ABG Base Excess FiO2 Sodium 141 Potassium 3.1 L Chloride 95.5 L Carbon Dioxide 21 L Anion Gap 28 BUN 18 Creatinine 4.6 H Estimated GFR 11 BUN/Creatinine Ratio 4 Glucose 176 H POC Glucose Lactic Acid 10.60 H* Calcium 9.9 Total Bilirubin < 0.30 AST 125 H ALT 106 H Alkaline Phosphatase 75 Total Creatine Kinase 233 H CK-MB (CK-2) 5.0 H CK-MB (CK-2) Rel Index 2.1 Troponin T 0.157 H* Total Protein 7.9 Albumin 3.8 L Albumin/Globulin Ratio 0.9 Triglycerides 62 Cholesterol 141 LDL Cholesterol Direct 68 HDL Cholesterol 69 H Cholesterol/HDL Ratio 2.04 Salicylates Acetaminophen < 5.0 L Plasma/Serum Alcohol Hepatitis A IgM Ab Hep Bs Antigen Hep B Core IgM Ab Hepatitis C Antibody 04/13/19 04/13/19 04/13/19 17:59 19:31 20:05 WBC RBC Hgb Hct MCV MCH MCHC RDW Plt Count Lymph % (Auto) [place] % (Auto) Eos % (Auto) Baso % (Auto) Lymph # [place] # Eos # Baso # Seg Neutrophils % Seg Neutrophils # APTT Thrombin Time Activated Clotting Time POC ABG pH 7.386 POC ABG pCO2 47.8 H POC ABG pO2 362 H POC ABG HCO3 28.7 POC ABG Total CO2 30 POC ABG O2 Sat 100 POC ABG Base Excess 4 FiO2 100 Sodium Potassium Chloride Carbon Dioxide Anion Gap BUN Creatinine Estimated GFR BUN/Creatinine Ratio Glucose POC Glucose < 40 L Lactic Acid 3.80 H* Calcium Total Bilirubin AST ALT Alkaline Phosphatase Total Creatine Kinase CK-MB (CK-2) CK-MB (CK-2) Rel Index Troponin T Total Protein Albumin Albumin/Globulin Ratio Triglycerides Cholesterol LDL Cholesterol Direct HDL Cholesterol Cholesterol/HDL Ratio Salicylates Acetaminophen Plasma/Serum Alcohol Hepatitis A IgM Ab Hep Bs Antigen Hep B Core IgM Ab Hepatitis C Antibody 04/13/19 04/13/19 04/13/19 21:16 21:39 21:39 WBC RBC Hgb Hct MCV MCH MCHC RDW Plt Count Lymph % (Auto) [place] % (Auto) Eos % (Auto) Baso % (Auto) Lymph # [place] # Eos # Baso # Seg Neutrophils % Seg Neutrophils # APTT Thrombin Time Activated Clotting Time 208 H POC ABG pH POC ABG pCO2 POC ABG pO2 POC ABG HCO3 POC ABG Total CO2 POC ABG O2 Sat POC ABG Base Excess FiO2 Sodium 134 L Potassium 3.6 Chloride 93.1 L Carbon Dioxide 25 Anion Gap 20 BUN 22 H Creatinine 5.5 H Estimated GFR 12 BUN/Creatinine Ratio 4 Glucose 77 POC Glucose Lactic Acid 3.90 H* Calcium 9.0 Total Bilirubin 0.40 AST 120 H ALT 94 H Alkaline Phosphatase 66 Total Creatine Kinase CK-MB (CK-2) CK-MB (CK-2) Rel Index Troponin T Total Protein 7.0 Albumin 3.3 L Albumin/Globulin Ratio 0.9 Triglycerides Cholesterol LDL Cholesterol Direct HDL Cholesterol Cholesterol/HDL Ratio Salicylates Acetaminophen Plasma/Serum Alcohol Hepatitis A IgM Ab Hep Bs Antigen Hep B Core IgM Ab Hepatitis C Antibody 04/13/19 04/13/19 04/14/19 21:53 22:15 00:21 WBC RBC Hgb Hct MCV MCH MCHC RDW Plt Count Lymph % (Auto) [place] % (Auto) Eos % (Auto) Baso % (Auto) Lymph # [place] # Eos # Baso # Seg Neutrophils % Seg Neutrophils # APTT Thrombin Time Activated Clotting Time 158 H POC ABG pH POC ABG pCO2 POC ABG pO2 POC ABG HCO3 POC ABG Total CO2 POC ABG O2 Sat POC ABG Base Excess FiO2 Sodium Potassium Chloride Carbon Dioxide Anion Gap BUN Creatinine Estimated GFR BUN/Creatinine Ratio Glucose POC Glucose 106 H Lactic Acid 2.80 H* Calcium Total Bilirubin AST ALT Alkaline Phosphatase Total Creatine Kinase CK-MB (CK-2) CK-MB (CK-2) Rel Index Troponin T Total Protein Albumin Albumin/Globulin Ratio Triglycerides Cholesterol LDL Cholesterol Direct HDL Cholesterol Cholesterol/HDL Ratio Salicylates Acetaminophen Plasma/Serum Alcohol Hepatitis A IgM Ab Hep Bs Antigen Hep B Core IgM Ab Hepatitis C Antibody 04/14/19 04/14/19 04/14/19 00:25 04:06 04:48 WBC RBC Hgb Hct MCV MCH MCHC RDW Plt Count Lymph % (Auto) [place] % (Auto) Eos % (Auto) Baso % (Auto) Lymph # [place] # Eos # Baso # Seg Neutrophils % Seg Neutrophils # APTT Thrombin Time Activated Clotting Time POC ABG pH 7.615 H POC ABG pCO2 POC ABG pO2 182 H POC ABG HCO3 30.1 POC ABG Total CO2 31 POC ABG O2 Sat 100 POC ABG Base Excess 9 FiO2 50 Sodium Potassium Chloride Carbon Dioxide Anion Gap BUN Creatinine Estimated GFR BUN/Creatinine Ratio Glucose POC Glucose 189 H 148 H Lactic Acid Calcium Total Bilirubin AST ALT Alkaline Phosphatase Total Creatine Kinase CK-MB (CK-2) CK-MB (CK-2) Rel Index Troponin T Total Protein Albumin Albumin/Globulin Ratio Triglycerides Cholesterol LDL Cholesterol Direct HDL Cholesterol Cholesterol/HDL Ratio Salicylates Acetaminophen Plasma/Serum Alcohol Hepatitis A IgM Ab Hep Bs Antigen Hep B Core IgM Ab Hepatitis C Antibody 04/14/19 04/14/19 04/14/19 05:08 05:08 05:08 WBC 7.2 RBC 2.68 L Hgb 7.9 L Hct 24.6 L D MCV 92 MCH 30 MCHC 32 RDW 20.4 H Plt Count 181 Lymph % (Auto) 15.8 [place] % (Auto) 7.8 H Eos % (Auto) 1.5 Baso % (Auto) 0.6 Lymph # 1.1 L [place] # 0.6 Eos # 0.1 Baso # 0.0 Seg Neutrophils % 74.3 H Seg Neutrophils # 5.3 APTT Thrombin Time Activated Clotting Time POC ABG pH POC ABG pCO2 POC ABG pO2 POC ABG HCO3 POC ABG Total CO2 POC ABG O2 Sat POC ABG Base Excess FiO2 Sodium 138 Potassium 4.8 D Chloride 95.7 L Carbon Dioxide 27 Anion Gap 20 BUN 30 H Creatinine 6.3 H Estimated GFR 11 BUN/Creatinine Ratio 5 Glucose 130 H POC Glucose Lactic Acid 2.50 H* Calcium 8.8 Total Bilirubin AST ALT Alkaline Phosphatase Total Creatine Kinase 273 H CK-MB (CK-2) 4.9 H CK-MB (CK-2) Rel Index 1.7 Troponin T 0.287 H* D Total Protein Albumin Albumin/Globulin Ratio Triglycerides Cholesterol LDL Cholesterol Direct HDL Cholesterol Cholesterol/HDL Ratio Salicylates Acetaminophen Plasma/Serum Alcohol Hepatitis A IgM Ab Hep Bs Antigen Hep B Core IgM Ab Hepatitis C Antibody 04/14/19 04/14/19 04/14/19 05:19 09:38 09:48 WBC RBC Hgb Hct MCV MCH MCHC RDW Plt Count Lymph % (Auto) [place] % (Auto) Eos % (Auto) Baso % (Auto) Lymph # [place] # Eos # Baso # Seg Neutrophils % Seg Neutrophils # APTT Thrombin Time Activated Clotting Time POC ABG pH POC ABG pCO2 POC ABG pO2 POC ABG HCO3 POC ABG Total CO2 POC ABG O2 Sat POC ABG Base Excess FiO2 Sodium Potassium Chloride Carbon Dioxide Anion Gap BUN Creatinine Estimated GFR BUN/Creatinine Ratio Glucose POC Glucose 196 H 161 H Lactic Acid 2.50 H* Calcium Total Bilirubin AST ALT Alkaline Phosphatase Total Creatine Kinase CK-MB (CK-2) CK-MB (CK-2) Rel Index Troponin T Total Protein Albumin Albumin/Globulin Ratio Triglycerides Cholesterol LDL Cholesterol Direct HDL Cholesterol Cholesterol/HDL Ratio Salicylates Acetaminophen Plasma/Serum Alcohol Hepatitis A IgM Ab Hep Bs Antigen Hep B Core IgM Ab Hepatitis C Antibody 04/14/19 04/14/19 04/14/19 15:25 15:36 15:36 WBC 9.2 RBC 2.52 L Hgb 7.4 L Hct 22.6 L MCV 90 MCH 29 MCHC 33 RDW 20.5 H Plt Count 209 Lymph % (Auto) 19.1 [place] % (Auto) 6.5 Eos % (Auto) 1.6 Baso % (Auto) 0.9 Lymph # 1.8 [place] # 0.6 Eos # 0.1 Baso # 0.1 Seg Neutrophils % 71.9 H Seg Neutrophils # 6.6 APTT Thrombin Time Activated Clotting Time POC ABG pH POC ABG pCO2 POC ABG pO2 POC ABG HCO3 POC ABG Total CO2 POC ABG O2 Sat POC ABG Base Excess FiO2 Sodium Potassium Chloride Carbon Dioxide Anion Gap BUN Creatinine Estimated GFR BUN/Creatinine Ratio Glucose POC Glucose 174 H Lactic Acid Calcium Total Bilirubin AST ALT Alkaline Phosphatase Total Creatine Kinase CK-MB (CK-2) CK-MB (CK-2) Rel Index Troponin T Total Protein Albumin Albumin/Globulin Ratio Triglycerides Cholesterol LDL Cholesterol Direct HDL Cholesterol Cholesterol/HDL Ratio Salicylates Acetaminophen Plasma/Serum Alcohol Hepatitis A IgM Ab Non-reactive Hep Bs Antigen Non-reactive Hep B Core IgM Ab Non-reactive Hepatitis C Antibody Non-reactive Assessment and Plan Patient seen and examined. Agree with note above. one episode of large bloody bm today, no further episodes since that time. drop in H/H with repeat lab stable. given current medical condition as detailed above, high risk for endoscopic evaluation. obtain bleeding scan as above, serial h/h and transfuse to keep hgb > 9-10 given recent stemi.
[2019-04-14 15:57] LABS: Basophils # (Auto) 0.1 K/mm3 (0.0-0.1); Basophils % (Auto) 0.9 % (0.0-1.8); Eosinophils # (Auto) 0.1 K/mm3 (0.0-0.4); Eosinophils % (Auto) 1.6 % (0.0-4.3); Hematocrit 22.6 % (35.5-45.6); Hemoglobin 7.4 gm/dl (11.8-15.2); Lymphocytes # (Auto) 1.8 K/mm3 (1.2-5.4); Lymphocytes % (Auto) 19.1 % (13.4-35.0); Mean Corpuscular HGB Conc 33 % (32-34); Mean Corpuscular Volume 90 fl (84-94); Monocytes # (Auto) 0.6 K/mm3 (0.0-0.8); Monocytes % (Auto) 6.5 % (0.0-7.3); Platelet Count 209 K/mm3 (140-440); Red Blood Count 2.52 M/mm3 (3.65-5.03); Red Cell Distribution Width 20.5 % (13.2-15.2)
[2019-04-14 16:57] LABS: Hepatitis B Surface Antigen Non-Reactive (Negative); Hepatitis C Virus Antibody Non-Reactive (NonReactive)
--- NOTE | 2019-04-14 17:24 | Consultation ---
CARDIOLOGY CONSULTATION REFERRING PHYSICIAN: Dr. Dickson in the Emergency Room. REASON FOR CONSULTATION: Advice and opinion regarding cardiac arrest, anterior ST elevation myocardial infarction. HISTORY OF PRESENT ILLNESS: The patient is a 73-year-old -Portuguese gentleman, who was found down after dialysis was resuscitated. Unclear of his primary rhythm, brought to the Emergency Room, regained his pulse and his blood pressure. He is intubated and sedated, has significant hypertension. EKG shows anterior ST elevation. No history is available as he is intubated and sedated. No family is available at this time. Given his history and questionable wide mediastinum on chest x-ray in the Emergency Room, I went ahead and ordered a head and chest CT, which were unremarkable for head bleed, aortic dissection, or pulmonary embolus. At this point, given his ST elevation and being found down, we decided to proceed with urgent left heart catheterization approximately 60 minutes of critical care time was spent in anticipation of this. SOCIAL HISTORY, FAMILY HISTORY: Unknown. PAST MEDICAL HISTORY: Hypertension, chronic kidney disease on hemodialysis, dementia, otherwise unknown. This is as taken as from chart. ALLERGIES: No known drug allergies. PHYSICAL EXAMINATION: VITAL SIGNS: Blood pressure upon arrival in the 170-180 systolic, is afebrile. Tele reveals sinus rhythm. O2 sat is 100% on ventilator. GENERAL: This is an elderly -Portuguese gentleman, intubated and sedated. HEENT: Sclerae icteric. PERRL. NECK: Supple, no masses, no JVD. CHEST: Clear to auscultation bilaterally. Good air movement. CARDIOVASCULAR: Regular rhythm, S1, S2. ABDOMEN: Soft, nontender, nondistended. Normoactive bowel sounds in 4 quadrants. No mass or bruits. EXTREMITIES: No cyanosis, clubbing, edema. Good peripheral pulses. SKIN: Intact. No rashes. DATA: EKG reveals anterior ST elevation with reciprocal changes inferiorly sinus rhythm. ASSESSMENT: In summary, the patient is a 73-year-old -Portuguese gentleman: Acute anterior ST elevation myocardial infarction in a patient found down/cardiac arrest (unclear primary rhythm.) Head and chest CT are noted to be negative. We will proceed to the bed laborer her primary PCI, unable to obtain any additional history. Significant amount of time was spent in the coordination of care pre-cath as aforementioned. Further plans contingent on cardiac catheterization. Heparin, aspirin, and Plavix loaded. JOB# [id number] SBM/NTS
[2019-04-14] MEDS: PROTONIX 80 MG in NACL 0.9% 100 ML IV SCH (17:57)
[2019-04-14] MEDS ORDERED: VANCOMYCIN PHARMACY TO DOSE IV SCH (18:00)
[2019-04-14] MEDS ORDERED: VANCOMYCIN/NS 1 GM/250 ML 1 GM/250 ML BAG IV SCH (18:00)
[2019-04-14] MEDS ORDERED: FLUSH HEPARIN IV ONE (18:41)
[2019-04-14] MEDS ORDERED: VANCOMYCIN 1,750 MG in NACL 0.9% 500 ML 500 ML IV ONE (19:00)
[2019-04-14] MEDS ORDERED: ATIVAN IV PRN (19:47)
[2019-04-14 20:35] LABS: Calcium 8.7 mg/dL (8.4-10.2)
[2019-04-14] MEDS ORDERED: ZOSYN/NS 2.25 GM/50ML 2.25 GM/50 ML BAG IV SCH (22:00)
--- NOTE | 2019-04-14 22:41 | Nuclear Medicine Report ---
PROCEDURE: NM GI BLEEDING SCAN TECHNIQUE: Arterial flow and static planar gamma camera images of the abdomen and pelvis were obtain ed after the IV administration of 21.0 mCi Tc-99m tagged red blood cells. HISTORY: GI bleed COMPARISONS: FINDINGS: There is a linear accumulation of isotope in the left lower quadrant seen towards the end of the exam on image 11 series 1000 also visualized on image 1 series 1000-2. This may be in the left side of th e colon versus a loop of small bowel. Additional overhead image to evaluate transition of the isotope may be helpful to further locate area of hemorrhage. . IMPRESSION: Mild ongoing hemorrhage left mid abdomen laterally. Please see above comments. This document is electronically signed by Quique Marcelo MD., Apr 14 2019 11:39:37 PM ET
[2019-04-15] MEDS: PROTONIX 80 MG in NACL 0.9% 100 ML IV SCH (00:57)
[2019-04-15] MEDS: MIDAZOLAM 100 MG in NACL 0.9% 80 ML IV SCH (01:00)
[2019-04-15] MEDS: HumaLOG SUB-Q SCH ×2 (02:59→06:22)
[2019-04-15] MEDS ORDERED: NACL 0.9% 1000 ML 1,000 ML ONE (04:12)
[2019-04-15 04:32] LABS: Hematocrit 20.4 % (35.5-45.6); Hemoglobin 6.2 gm/dl (11.8-15.2); Mean Corpuscular HGB Conc 30 % (32-34); Mean Corpuscular Volume 98 fl (84-94); Platelet Count 176 K/mm3 (140-440); Red Blood Count 2.09 M/mm3 (3.65-5.03)
[2019-04-15] MEDS ORDERED: NACL 0.9% 500 ML 500 ML IV ONE (04:46)
[2019-04-15] MEDS ORDERED: INTROPIN DRIP 800 MG/D5W 250 ML 800 MG/250 ML BAG IV SCH (04:56)
[2019-04-15 05:01] LABS: Albumin 2.9 g/dL (3.9-5); Calcium 8.5 mg/dL (8.4-10.2)
--- NOTE | 2019-04-15 05:33 | XRay Report ---
PROCEDURE: XR CHEST 1V AP TECHNIQUE: Chest radiograph single view. HISTORY: follow up respiratory failure COMPARISONS: April 14 . FINDINGS: ET tube and NG tube remain in place. Cardiac silhouette is not enlarged. No new areas of airspace consolidation or pleural effusions. No significant interval change. IMPRESSION: No significant interval change since the prior radiograph. This document is electronically signed by Malcolm Davila MD., April 15 2019 06:31:46 AM ET
[2019-04-15] MEDS ORDERED: Vasostrict 20 UNIT in NACL 0.9% 100 ML IV SCH (06:00)
[2019-04-15] MEDS ORDERED: LEVOPHED DRIP 4 MG/NS 250 ML 4 MG/250 ML BAG IV SCH (06:00)
[2019-04-15 06:07] LABS: Band Neutrophils # (Manual) 0.6 K/mm3; Eosinophils % (Manual) 0 % (0.0-4.3); Total Cells Counted 100
[2019-04-15 06:08] LABS: Basophils % (Manual) 0 % (0.0-1.8)
[2019-04-15 06:09] LABS: Anisocytosis 2+; Platelet Estimate Consistent w Auto
--- NOTE | 2019-04-15 06:23 | Consultation ---
PULMONARY CRITICAL CARE CONSULTATION NOTE CONSULTING PHYSICIANS: Dr. Mendez and Dr. Dickson in the ER. REASON FOR CONSULTATION: Acute hypoxemic respiratory failure, on mechanical ventilator support, status post cardiac arrest. CHIEF COMPLAINT AND HISTORY OF PRESENT ILLNESS: The patient is a 73-year-old -Citizen Of [place] male with past medical history as far as we can tell at this point significant for end-stage renal disease, on dialysis since 2010. EMS was notified and they found the patient in cardiac arrest. This might have been at his dialysis center. He was initiated on ACLS protocol. It seems he received cardiopulmonary resuscitation. He was intubated/a Piyush airway was placed and the EMS reports about 45 minutes of CPR before return of spontaneous circulation. In the ED, he was hypertensive. He looked anoxic described as findings consistent with anoxic brain injury. His initial EKG changes suggested ST elevation [place]. He was intubated. Cardiology was consulted. He was taken emergently to the ear mold laboratory technician and it seems like they did find LAD lesion. A stent reportedly was placed, a drug-eluting stent. He reportedly had preserved left ventricular function. We are asked to assist with management. When I stopped by to see him, he was resting in bed. He would open his eyes to stimulation, but was really not following any commands otherwise, he had just received some sedation. Reportedly, he had had some intermittent myoclonic jerk type movements. I do not have any history of vomiting or overt aspiration. Family had denied tobacco use according to the records. The patient is unable to give me a history. The above is as much of the history of presentation as I have. PAST MEDICAL HISTORY: At this point, as far as I can tell, end-stage renal disease, on dialysis and history of diabetes. PAST SURGICAL HISTORY: Unknown. MEDICATIONS: He was on at the time I stopped by to see him were reviewed. Pertinent medications include the following: Albuterol nebulizer treatments 2.5 mg nebulized q. 3 hours p.r.n. shortness of breath, aspirin 325 mg p.o. daily, Lipitor 40 mg p.o. at bedtime, all p.o. meds are via the feeding tube, Plavix 75 mg p.o. daily, p.r.n. fentanyl. He was also on a fentanyl drip at 1 mcg/kg per hour, insulin via sliding scale, Keppra 1 gram IV q. 12 hours, Versed 2 mg IV p.r.n. and Versed drip at 2 mg per hour, nicardipine was going at 5 mg per hour, Zofran 4 mg IV q. 8 hours p.r.n. nausea and vomiting. ALLERGIES: No known drug allergies. DIET: Well-built gentleman, acute weight loss or gain history is unknown. FAMILY AND SOCIAL HISTORY: Apparently lives in the community. Family describes him as being a nonsmoker, nondrinker, and no illicit drug use or abuse. Family history is otherwise unknown. REVIEW OF SYSTEMS: Unobtainable secondary to the patient's medical and mental condition. Since he has been here, no overt seizures have been reported. No gross hematochezia or melena, no gross hematuria, no bloody tracheal secretions, no hematemesis and again no witnessed seizures. Review of systems otherwise unobtainable. PHYSICAL EXAMINATION: VITAL SIGNS: On presentation in the Emergency Room, he was afebrile, temperature 97.8 degrees Fahrenheit with a pulse of 80, respiratory rate of 16 on the mechanical ventilator and blood pressure 186/100, O2 sats 100%, inspired oxygen concentration level was not recorded. At the time I stopped by to see him, O2 sats were 98% that was on the assist control PRVC AC mode of ventilation, tidal volume 500, rate of 20, PEEP of 6, and 50% FiO2. GENERAL: Elderly looking -Citizen [place] male. Normocephalic, atraumatic, riding the mechanical ventilator without significant patient ventilator dyssynchrony. HEAD, EYES, EARS, NOSE AND THROAT: He is anicteric. No conjunctival erythema. Endotracheal tube is taped in place around 24 cm at the lips. No gross jugular venous distention. He does have a large neck circumference. Grossly, no palpable lymph nodes in the supraclavicular or submandibular lymph node chains. LUNGS: Auscultation of both lung shukla reveals coarse bilateral breath sounds without active wheezing. Slightly diminished. HEART: Sounds 1 and 2 are heard at the time of my evaluation, regular rate and rhythm without overt rubs or murmurs. ABDOMEN: Soft, full, protuberant. Bowel sounds are positive, nontender. No palpable hepatosplenomegaly. EXTREMITIES: Without overt digital clubbing or cyanosis. He does have about 1+ bipedal pitting edema. Pedal pulses are palpable and strong bilaterally. He has a left upper extremity AV graft. NEUROLOGIC: Pupils are equal, round, about 3 mm, sluggishly reactive to light. Extraocular muscle movements could not be assessed. He did not have any spontaneous movements to his extremities at the time of my presentation. He did open his eyes with a leftward gaze to stimulation. The skin was otherwise of poor turgor without overt cellulitis or rash. LABORATORY DATA: From my review are as follows: Admission white cell count 9700, hemoglobin 9.7, hematocrit 30.8, platelet count 227. No manual differential. INR 0.98. Arterial blood gas showed a pH of 7.39, pCO2 of 48, pO2 of 362 that was on 100% FiO2 at presentation. Most recent gas showed a pH of 7.62, pCO2 is pending, pO2 is 182 that was on 50% of FiO2 on the above-mentioned vent settings. Serum sodium was 141 at presentation, potassium 3.1, chloride 96, bicarbonate 21, BUN 18, creatinine 4.6, glucose 176. Lactic acid level was 3.8, AST 124, ALT 106. Troponin was 0.157. Albumin 3.8. Liver function tests otherwise within normal limits. Aspirin, Tylenol, alcohol levels were nondetectable. Serum lactate seems to have peaked at 3.9, but still not in range, 2.5 is the most recent. Blood cultures, tracheal aspirate no growth to date. A CT scan was done of the head. I have reviewed the neurologist interpretation, no evidence of intracranial hemorrhage, no acute abnormality was seen. A chest x-ray most recent shows the ET tube tip at the lower level of the clavicular heads, borderline cardiomegaly, some perihilar infiltrates, vascular congestion, no gross pneumothorax, no gross bony fracture, perhaps an element of vascular crowding, but also consistent with mild interstitial edema. A CT angiogram was also done of the chest. Essentially there are no gross filling defects consistent with pulmonary emboli. No significant mediastinal adenopathy that I can see. He has a patulous esophagus and possibility of aspiration. The long windows ground glass opacification and patchy infiltrates are consistent with mild interstitial edema. No aortic dissection. ASSESSMENT: 1. Acute hypoxemic respiratory failure, on mechanical ventilatory support. 2. Status post cardiac arrest with return of spontaneous circulation. 3. Acute encephalopathy, presumably anoxic. 4. ST elevation myocardial infarction, status post PTCA and placement of a drug-eluting stent. 5. Mild metabolic acidosis at presentation. 6. End-stage renal disease, on dialysis. 7. Anemia that is normocytic. 8. Lactic acidosis. 9. Elevated serum transaminases. 10. Elevated serum troponin. 11. Hypoalbuminemia. 12. Oropharyngeal dysphagia. 13. Possible seizure activity. PLAN: We will keep him on full mechanical ventilator support in the short term, certainly his mental status precludes extubation at this time. I have reduced the set minute ventilation. We will reduce the rate to 12. Consideration will be given to reduce the tidal volumes. Oxygen will be weaned to keep sats greater than or equal to about 90%. Aspiration precautions will be maintained. Bronchodilators will be ordered. We will look to the hemodialysis with ultrafiltration for volume control. No overt pulmonary edema at this time. Neurology evaluation is ongoing. We will follow him clinically off antibiotics at this time while monitoring the cultures and watching out clinically for fevers and leukocytosis. I will order a CRP level to better evaluate the possibility of infectious driven process at this time. We will repeat lactic acid levels in the morning. Daily sedation assessment trials and spontaneous breathing trial assessments will be done. He is going to be on heparin for DVT prophylaxis and Pepcid for gastrointestinal prophylaxis. Nephrology consultation has been placed and is ongoing. Neurology evaluation is ongoing. An EEG is pending. He is not brain . Flu and pneumonia vaccination will be addressed per protocol. Enteral nutrition will be the feeding modality of choice. Thank you very much for the consult, Dr. Mendez. I should mention we will continue the empiric Keppra therapy. He is critically ill at high risk of from deterioration in the cardiopulmonary, renal and neurologic systems. At this time, I spent about 35-40 minutes of critical care time without overlap and excluding any procedural time that may be necessary. Case has been discussed at length during rounds and everybody is intimated on the care plan. JOB# [id number] JAE/OBED
[2019-04-15 07:16] VITALS: BP 67/20
--- NOTE | 2019-04-15 08:19 | Event Note ---
<RAVIN VELA - Last Filed: 04/15/19 08:08> Date: 04/15/19 Around 4:30 pt's nurse asked me to review the pt's bleeding scan that showed small area of hemorrhage, a stat h&h was ordered, less than 10 mins after the order, the pt coded, he went to PEA, he received 2 epi, and a normal circulation return less that 15 mins. at that time pt was started dopamine because the heart rate and the BP was low and he didn't have a central line. I went to the ER to get an IO kit, and right after it was inserted, pt coded again, circulation return in less that 15 mins. Pt recoded a 4th time while he was on 2 pressures, at time the family was already arrived to the unit and signed the AND (allow natural ) form. <ZONIA FLORES - Last Filed: 04/22/19 21:43> I agree with the above documentations by the ART LIBRARIAN-C
--- NOTE | 2019-04-15 08:19 | Event Note ---
Date: 04/15/19 Called by RN regarding bleeding scan results this morning at around 4:45 AM. Patient had coded earlier this morning. Patient critically ill and unstable for any endoscopic intervention. Ordered 2 units of PRBCs. Spoke with the overnight hospitalist on the phone and patient had another code blue. Per RN this morning, patient's family arrived and changed code status.
--- NOTE | 2019-04-15 08:42 | Death Summary ---
Summary - Providers Date of service: 04/15/19 Consults: 04/13/19 Consult to Cardiac Rehabilitation [CONS] Routine Reason For Exam: post pci 04/13/19 17:31 Consult to Physician [CONS] Urgent Comment: Consulting Provider: TAL CERVANTES Physician Instructions: Reason For Exam: ARREST ? STEMI 04/13/19 17:53 Consult to Physician [CONS] Urgent Comment: Consulting Provider: VANNESA YU Physician Instructions: Reason For Exam: post arrest 04/13/19 18:02 Consult to Physician [CONS] Urgent Comment: Consulting Provider: PARAG APPLE Physician Instructions: Reason For Exam: esrd 04/13/19 20:32 Consult to Dietitian/Nutrition [CONS] Routine Physician Instructions: Reason For Exam: Reason for Consult: Diet education 04/14/19 10:45 Consult to Physician [CONS] Routine Comment: Consulting Provider: VAIBHAV OLIVERA Physician Instructions: Reason For Exam: Anoxic brain injury 04/14/19 15:09 Consult to Physician [CONS] Routine Comment: Consulting Provider: OPAL DONALD Physician Instructions: Reason For Exam: GI bleed 04/14/19 17:57 Consult to Physician [CONS] Routine Comment: Consulting Provider: RONDA CROWELL Physician Instructions: Reason For Exam: bacteremia; Sepsis Attending: MAKEDA THACKER MD - summary Date of admission: 04/13/19 18:26 Date of : 04/15/19 Reason for admission: cardiac arrest Significant findings: 73 YO Male with Obesity presents to ED for evaluation. Pt is unresponsive and unable to provide history. Pt history taken from EMS, and ED staff. As per staff, the patient was found down and unresponsive in his van. EMS was notified and upon arrival the patient was found to be in cardiac arrest. Pt initiated on ACLS protocol and transported to [facility]. Pt intubated and a Piyush airway placed. Pt was in PEA for 4-5 minutes as per EMS with return of perfusing rhythm. Pt seen and evaluated in ED and found to be hypertensive with clinical findings consistent with Anoxic Brain Injury as well as Acute Respiratory Failure and EKG changes consistent with STEMI. PT intubated with a definitive airway in ED and placed on vent support. Cardiology consulted in ED and patient taken urgently to the laborer poultry hatchery. Pt admitted to ICU. Pulmonary team consulted in ED. No further history obtainable. No prior admission for review. No medication listed at time of admission for reconciliation. * Patient on admission underwent cardiac catherization with PCI placement * Patient was seen by Neurology and started on keppra for possible underlying seizure * He was noted to have a large bowel movement with blood stool GI consulted * Patient unfortunately early hours of today began having further cardiac arrest requiring resuscitation >4 episodes and unfortunately this am Anoxic Brain Injury/Anoxic encephalopathy STEMI S/P Cardiac arrest Acute Respiratory failure on full mechanical ventilation Seizure Shock liver syndrome ESRD Acute Blood loss Anemia secondary to GI bleed Metabolic Acidosis DM HTN Baseline dementia
[2019-04-15] MEDS ORDERED: ADRENALIN ONE (13:19)
[2019-04-15] MEDS ORDERED: ATROPINE 0.1% (CARDIAC) ONE (13:19)
[2019-04-15] MEDS ORDERED: D50W (25GM) Vial IV ONE (13:19)
[2019-04-15] MEDS ORDERED: INTROPIN DRIP 800 MG/D5W 250 ML IV ONE (13:19)
--- NOTE | 2019-04-18 09:12 | Electroencephalogram Report ---
Electroencephalogram EEG Description: The waking background shows an appropriate organization with well-defined anterior posterior voltage and frequency gradients. Posteriorly, there is a well-developed alpha rhythm of [ ] Hz which is symmetrical and bilaterally reactive. Anteriorly, there is a pattern of lower voltage and slightly irregular theta and beta range frequencies. During drowsiness, there is attenuation of the background rhythms. The sleep background shows normal organization with well-formed sleep spindles and vertex waves which are synchronous and symmetrical. Throughout, the recording there are no epileptiform abnormalities, focal or lateralizing features, or significant interhemispheric findings.
== END 2019-04-15 07:02 | DRG 246 ==
LOC: EDBD → ED 17:00 → CC1 18:26
PROVIDERS: ADMIT Internal Medicine; ATTEND Internal Medicine
PROC: 5A1945Z Respiratory Ventilation, 24-96 Consecutive Hours (ICD-10-PCS; principal; 2019-04-13)
PROC: 027034Z Dilation of Coronary Artery, One Artery with Drug-eluting Intraluminal Device, Percutaneous Approach (ICD-10-PCS; 2019-04-13)
PROC: 0BH17EZ Insertion of Endotracheal Airway into Trachea, Via Natural or Artificial Opening (ICD-10-PCS; 2019-04-13)
PROC: B240ZZ3 Ultrasonography of Single Coronary Artery, Intravascular (ICD-10-PCS; 2019-04-13)
PROC: 4A023N7 Measurement of Cardiac Sampling and Pressure, Left Heart, Percutaneous Approach (ICD-10-PCS; 2019-04-13)
PROC: B2111ZZ Fluoroscopy of Multiple Coronary Arteries using Low Osmolar Contrast (ICD-10-PCS; 2019-04-13)
PROC: B2151ZZ Fluoroscopy of Left Heart using Low Osmolar Contrast (ICD-10-PCS; 2019-04-13)
PROC: 4A033R1 Measurement of Arterial Saturation, Peripheral, Percutaneous Approach (ICD-10-PCS; 2019-04-13)
PROC: 5A1D70Z Performance of Urinary Filtration, Intermittent, Less than 6 Hours Per Day (ICD-10-PCS; 2019-04-14)
PROC: 3E0A3GC Introduction of Other Therapeutic Substance into Bone Marrow, Percutaneous Approach (ICD-10-PCS; 2019-04-15)
DX: I21.09 ST elevation (STEMI) myocardial infarction involving other coronary artery of anterior wall (principal); N18.6 End stage renal disease; J96.01 Acute respiratory failure with hypoxia; K72.00 Acute and subacute hepatic failure without coma; E87.2 Acidosis; I12.0 Hypertensive chronic kidney disease with stage 5 chronic kidney disease or end stage renal disease; G93.1 Anoxic brain damage, not elsewhere classified; D62 Acute posthemorrhagic anemia; K92.2 Gastrointestinal hemorrhage, unspecified; Z66 Do not resuscitate; I46.9 Cardiac arrest, cause unspecified; R13.12 Dysphagia, oropharyngeal phase; E11.22 Type 2 diabetes mellitus with diabetic chronic kidney disease; F03.90 Unspecified dementia, unspecified severity, without behavioral disturbance, psychotic disturbance, mood disturbance, and anxiety; Z79.899 Other long term (current) drug therapy; Z99.2 Dependence on renal dialysis; Z79.84 Long term (current) use of oral hypoglycemic drugs
CPT/HCPCS: 36415; 36600; 70450; 71045; 71275; 78278; 80048; 80053; 80061; 80074; 80320; 82140; 82550; 82553; 82803; 82962; 83735; 84484; 85007; 85025; 85347; 85610; 85670; 85730; 87040; 87070; 87205; 92941; 92978; 93005; 93010; 93306; 93458; 94002; 94003; 95819; 99292; G0378; A9270-GY; A9560; C1753; C1769; C1874; C1887; C1894; C9113; C9606; G0480; J0171; J0461; J1265; J1642; J1644; J1815; J1953; J2060; J2250; J2543; J3010; J3370; J7030; J7040; J7050; Q9967